=== PATIENT | female | born 1930 | race Caucasian/White ===

== ENCOUNTER 2016-10-26 07:01 | Inpatient (IN) | payer MEDICARE, OTHER ==
[~2016-10-26] VITALS: Ht 162.6 cm; Wt 55.1 kg
[~2016-10-26 07:01] MED LIST: ASC500 PO; ATEN-51 PO; BENA20TA48 PO; CALC-84 PO; CLOP75TA27 PO; DOCU-144 PO; DONE10TA7 PO; ERGO500014 PO; FURO-110 PO; MONT10TA21 PO; MULT-552 PO; POTA8TAB2 PO; SYN75 PO; ZOC10 PO
[2016-10-26] MEDS ORDERED: morphine 4 MG/ML VIAL IV STA (07:08)
[2016-10-26 07:13] VITALS: Ht 162.6 cm; Wt 55.1 kg
[2016-10-26 07:58] LABS: BASOPHIL # 0.1 10^3/ul (0.0-0.1); BASOPHILS % 0.3 % (0.0-2.0); EOSINOPHILS # 0.1 10^3/ul (0.0-0.5); EOSINOPHILS % 0.3 % (0.0-7.0); HEMATOCRIT 32.1 % (37.0-47.0); LYMPHOCYTES # 2.8 10^3/ul (0.8-2.9); MEAN CORPUSCULAR HEMOGLOBIN 37.8 pg (29.0-33.0); MEAN CORPUSCULAR HGB CONC 37.5 g/dl (32.0-37.0); MEAN CORPUSCULAR VOLUME 100.8 fl (82.0-101.0); MEAN PLATELET VOLUME 7.9 fl (7.4-10.4); MONOCYTE # 0.7 10^3/ul (0.3-0.9); MONOCYTES % 2.6 % (0.0-11.0); NEUTROPHIL # 21.5 10^3/ul (1.6-7.5); NEUTROPHILS % 85.8 % (39.0-77.0); PLATELET COUNT 389 10^3/UL (140-440); RED BLOOD COUNT 3.19 10^6/ul (4.20-5.40); RED CELL DISTRIBUTION WIDTH 12.8 % (11.5-14.5); UNCORRECTED WBC 25.1 10^3/ul (4.8-10.8); WHITE BLOOD COUNT 25.1 10^3/ul (4.8-10.8)
[2016-10-26 08:03] LABS: CONDITION 1; LH ANALYZER COMMENTS 1; SUSPECT 1
[2016-10-26 08:05] LABS: CHLORIDE 108 mmol/L (97-110)
[2016-10-26 08:06] LABS: INR 0.99; PROTIME 13.1 Sec (12.2-14.2); SODIUM 148 mmol/L (135-144)
[2016-10-26 08:07] LABS: PARTIAL THROMBOPLASTIN TIME 30.8 Sec (25.0-35.0)
[2016-10-26 08:08] LABS: CREATININE 0.92 mg/dl (0.44-1.00)
[2016-10-26 08:09] LABS: ANION GAP 19 (8-16); BLOOD UREA NITROGEN 20 mg/dl (7-20); CALCIUM 9.4 mg/dl (8.4-10.2); CARBON DIOXIDE 25 mmol/L (21-31); GLUCOSE 137 mg/dl (70-220)
[2016-10-26] MEDS ORDERED: AMLO5TAB4 PO (08:14)
[2016-10-26 08:20] LABS: ANISOCYTOSIS 1+
[2016-10-26 08:21] LABS: PLATELETS CLUMPS 1+
[2016-10-26 08:23] LABS: TROPONIN-I < 0.012 ng/ml (0.00-0.12)
--- NOTE | 2016-10-26 09:15 | RADRPT ---
PROCEDURE: XR Chest. CLINICAL INDICATION: Chest Pain. TECHNIQUE: Frontal chest x-ray was obtained. COMPARISON: Chest x-ray July 17, 2050 FINDINGS: The heart is not enlarged. Mediastinum is not widened. No hilar mass is present. Lungs are clear of any infiltrate. There is no effusion or pneumothorax. IMPRESSION: No evidence for active cardiopulmonary disease. .Antonio Medel MD, MD Date Time Electronically viewed and signed by .Antonio Medel MD, on 10/26/2016 09:15 .A/
--- NOTE | 2016-10-26 09:16 | RADRPT ---
PROCEDURE: XR Left Hip. CLINICAL INDICATION: Trauma TECHNIQUE: AP and frog lateral views of the left hip were performed. COMPARISON: None. FINDINGS: The hip joint is intact with anatomic alignment. There is a probable minimally displaced subcapital femoral neck fracture. No underlying lytic lesion is present. No pelvic fracture is seen. Sacroi liac joint is open. IMPRESSION: Probable minimally displaced left subcapital femoral neck fracture. CT could be performed for confi rmation. .Antonio Medel MD, MD Date Time Electronically viewed and signed by .Antonio Medel MD, MD on 10/26/2016 09:16 .A/
[2016-10-26 09:39] LABS: ADD UMIC YES; URINE BILIRUBIN (Dip) NEGATIVE (NEGATIVE); URINE BLOOD (Dip) 1+ (NEGATIVE); URINE COLOR LT. YELLOW (YELLOW); URINE GLUCOSE (Dip) NEGATIVE (NEGATIVE); URINE KETONES (Dip) NEGATIVE (NEGATIVE); URINE LEUKOCYTE ESTERASE (Dip) NEGATIVE (NEGATIVE); URINE NITRITE (Dip) NEGATIVE (NEGATIVE); URINE TOTAL PROTEIN (Dip) NEGATIVE (NEGATIVE); URINE UROBILINOGEN (Dip) 0.2 E.U./dL (0.1-1.0)
[2016-10-26] MEDS ORDERED: SOD CHLORIDE 0.9% 1,000 ML IV SCH (09:40)
--- NOTE | 2016-10-26 09:43 | ERA ---
ER Documentation Chief Complaint Date/Time DATE: 10/26/16 TIME: 09:41 Chief Complaint BIB RA FROM [facility] FOR LT HIP PAIN S/P FALL HPI This is a an 86-year-old female presents to the emergency room for evaluation of left-sided hip pain. This patient is coming from a longterm and fell off her bed. She states she is having pain in the left hip. No other trauma. No loss of consciousness or head injury. Patient denies being on any blood thinners. ROS All systems reviewed and are negative except as per history of present illness. Medications Home Meds Reported Medications Amlodipine Besylate* (Norvasc*) 5 Mg Tablet, 5 MG PO DAILY, TAB 10/26/16 Potassium Chloride* (Klor-Con*) 8 Meq Tablet.sa, 8 MEQ PO BID, TAB 07/17/15 Furosemide* (Lasix*) 20 Mg Tablet, 20 MG PO DAILY, TAB 07/17/15 Levothyroxine Sodium* (Synthroid*) 75 Mcg Tablet, 75 MCG PO AC BREAKFAST, TAB 07/17/15 Simvastatin (Simvastatin) 10 Mg Tablet, 10 MG PO HS, TAB 07/17/15 Multivitamins* (Once Daily*) 1 Tab Tablet, 1 TAB PO DAILY, TAB 07/17/15 Donepezil* (Aricept*) 10 Mg Tablet, 10 MG PO QHS, TAB 07/17/15 Docusate Sodium* (Colace*) 100 Mg Capsule, 100 MG PO BID, CAP 07/17/15 Benazepril Hcl* (Benazepril Hcl*) 20 Mg Tablet, 20 MG PO BID, TAB 07/17/15 Ergocalciferol* (Drisdol* (Vitamin D2)) 50,000 Unit Capsule, 15324 UNIT PO Q7D, CAP 07/17/15 Ascorbic Acid (Vitamin C) 500 Mg Tab, 500 MG PO DAILY, TAB 07/17/15 Montelukast Sodium* (Singulair*) 10 Mg Tablet, 10 MG PO HS, TAB 07/17/15 Clopidogrel Bisulfate (Clopidogrel) 75 Mg Tablet, 75 MG PO DAILY, TAB 07/17/15 Calcium Carbonate-Vitamin D3 (Calcium 500 + D Tablet) 1 Each Tablet, 1 TAB PO DAILY, TAB 07/17/15 Atenolol* (Atenolol*) 25 Mg Tablet, 25 MG PO DAILY, TAB 07/17/15 Allergies Allergies: Coded Allergies: No Known Allergy (Unverified , 07/17/15) PMhx/Soc History of Surgery: Yes (APPENDECTOMY) Anesthesia Reaction: No Hx Neurological Disorder: No Hx Respiratory Disorders: No Hx Cardiac Disorders: Yes (HTN) Hx Psychiatric Problems: No Hx Miscellaneous Medical Probl: Yes (DEMENTIA ) Hx Alcohol Use: No Hx Substance Use: No Hx Tobacco Use: No Smoking Status: Never smoker Physical Exam Vitals Vital Signs Date Time Temp Pulse Resp B/P Pulse Ox O2 Delivery O2 Flow Rate FiO2 10/26/16 08:43 86 18 182/88 98 Nasal Cannula 2.0 10/26/16 07:20 Nasal Cannula 2 10/26/16 07:13 98.5 98 18 185/68 98 Physical Exam INITIAL VITAL SIGNS: Reviewed by me GENERAL: The patient is well developed and appropriate for usual state of health in no apparent distress HEENT: Pupils equal, round, and reactive to light. EOMI. There is no scleral icterus. NECK: C-spine is soft and supple, there is no meningismus. There is no cervical lymphadenopathy. LUNGS: Clear to auscultation bilaterally. There are no rales, wheezes or rhonchi. HEART: Regular rate and rhythm, no murmurs, clicks, rubs or gallops. ABDOMEN: Soft, non-tender, non-distended. There are bowel sounds in all four quadrants. No rebound or guarding. EXTREMITIES: Internally rotated left hip, tender to palpation over ASIS, there is no peripheral cyanosis or edema. No focal swelling or erythema. NEUROLOGICAL: The patient moves all four extremities with 5/5 strength. Cranial nerves II - XII are intact. Normal gait. Alert and oriented SKIN: There is no apparent rash or petechiae. HEME/LYMPHATIC: There is no evidence of excessive bruising or lymphedema. PSYCHIATRIC: The patient does not appear anxious or depressed. Result Diagram: 10/26/1672410/26/16724 Results 24 hrs Laboratory Tests Test 10/26/16 07:25 Activated Partial Thromboplast Time 30.8Sec Anion Gap 19 Anisocytosis 1+ Basophils # 0.110^3/ul Basophils % 0.3% Blood Morphology Comment Blood Urea Nitrogen 20mg/dl Calcium Level 9.4mg/dl Carbon Dioxide Level 25mmol/L Chloride Level 108mmol/L Clumped Platelets 1+ Creatinine 0.92mg/dl Differential Comment AUTO w/SCAN Eosinophils # 0.110^3/ul Eosinophils % 0.3% Giant Platelets RARE Glucose Level 137mg/dl Hematocrit 32.1% Hemoglobin 12.0g/dl INR International Normalized Ratio 0.99 Lymphocytes # 2.810^3/ul Lymphocytes % 11.0% Macrocytosis 1+ Mean Corpuscular Hemoglobin 37.8pg Mean Corpuscular Hemoglobin Concent 37.5g/dl Mean Corpuscular Volume 100.8fl Mean Platelet Volume 7.9fl Monocytes # 0.710^3/ul Monocytes % 2.6% Neutrophils # 21.510^3/ul Neutrophils % 85.8% Nucleated Red Blood Cells # 0.010^3/ul Nucleated Red Blood Cells % 0.0/100WBC Platelet Count 25620^3/UL Potassium Level 4.0mmol/L Prothrombin Time 13.1Sec Prothrombin Time Ratio 1.0 Red Blood Count 3.1910^6/ul Red Cell Distribution Width 12.8% Sodium Level 148mmol/L Troponin I < 0.012ng/ml White Blood Count 25.110^3/ul Current Medications Medications (Trade) Dose Ordered Sig/Duglas Route PRN Reason Start Time Stop Time Status Last Admin Dose Admin Morphine Sulfate (morphine) 4 mg ONCE STAT IV 10/26/16 07:08 10/26/16 07:10 DC 10/26/16 07:31 Procedures/MDM X-ray Hip 2V Interpreted by me: Bones: Subcapital fracture Joints: [No dislocation] Foreign body: [None] Chest X-ray 1V Interpreted by me: Soft Tissue: No acute abnormalities Bones: No acute abnormalities Mediastinum/Cardiac Silhouette/Lungs: [No acute abnormalities] EKG: Rate/Rhythm: [Normal Sinus Rhythm] QRS, ST, T-waves: [No changes consistent w/ acute ischemia] Impression: [No evidence of ischemia or arrhythmia] This is an 86-year-old female presents to the emergency room for evaluation of left hip pain. This patient was found to have a left-sided hip fracture. I have spoken to our on-call orthopedic surgeon, Dr. finch who is aware and is okay with her admission at this time. This patient did have a white blood cell count greater than 20. The patient was given Rocephin in the emergency room. No signs of pneumonia. This patient will be placed in for admission to her panel physician on the [facility] floor. Departure Diagnosis: Primary Impression: Hip fracture, left Additional Impression: Leukocytosis Condition: Stable THIAGO AGUILA DO Oct 26, 2016 09:43
[2016-10-26] MEDS ORDERED: CEFTRIAXONE 1 GM/50 ML (PMX) 50 ML IVPB ONE (10:00)
[2016-10-26] MEDS ORDERED: ACETAMINOPHEN 325 MG TAB PO PRN ×2 (10:00→14:30)
[2016-10-26] MEDS ORDERED: ONDANSETRON 4 MG INJ IV PRN ×2 (10:00→14:30)
[2016-10-26 10:23] LABS: BACTERIA,URINE MANY
[2016-10-26 12:40] VITALS: BP 136/72; PULSE 91; RESP 16
[2016-10-26] MEDS ORDERED: NACL 0.9% 3 ML SYG IV SCH (14:30)
[2016-10-26] MEDS ORDERED: ZOLPIDEM 5 MG TAB PO PRN (14:30)
[2016-10-26] MEDS ORDERED: HYDROCODONE/APAP (5/325) TAB PO PRN (14:30)
[2016-10-26 14:40] LABS: CK-MB 0.43 ng/ml (0.0-2.4)
[2016-10-26 14:44] LABS: TROPONIN-I 0.055 ng/ml (0.00-0.12)
[2016-10-26] MEDS: morphine 2 MG INJ IV PRN ×2 (15:12→19:37)
[2016-10-26] MEDS: SOD CHLORIDE 0.45% 1,000 ML IV SCH (15:18)
[2016-10-26] MEDS ORDERED: hydrALAzine 20 MG INJ IV PRN (15:30)
--- NOTE | 2016-10-26 15:46 | CONS ---
DATE OF ADMISSION: 10/26/2016 DATE OF CONSULTATION: 10/26/2016 CHIEF COMPLAINT: Left hip pain. HISTORY OF PRESENT ILLNESS: This is an 86-year-old female who was brought into the emergency room a fter a fall at the long term. She is complaining of left groin pain. She denies any loss of con sciousness. She denies chest pain, shortness of breath. She has no other complaints. PAST MEDICAL HISTORY: Hypertension, coronary artery disease, CHF, dementia. MEDICATIONS: 1. Amlodipine 5 mg. 2. Lasix 20 mg. 3. Synthroid 75 mcg. 4. Simvastatin 10 mg. 5. Donepezil 10 mg. 6. Benazepril 20 mg. 7. Clopidogrel 75 mg. 8. Atenolol 25 mg. PAST SURGICAL HISTORY: Appendectomy. SOCIAL HISTORY: The patient lives in a long term. Denies tobacco, alcohol or drug use. FAMILY HISTORY: Noncontributory. ALLERGIES: NO KNOWN DRUG ALLERGIES. REVIEW OF SYSTEMS: Negative. PHYSICAL EXAMINATION VITAL SIGNS: Temperature 98.5, blood pressure 182/88, pulse of 86, 98% on 2 liters. GENERAL: The patient is comfortable. She is alert and oriented x1. EXTREMITIES: Left lower extremity, no open wounds. No deformities. Pain with axial loading. Calf is soft, nontender with a negative Homans. Unable to follow commands for neurovascular exam. LEFT HIP X-RAYS: X-rays of the left hip demonstrate a valgus impacted nondisplaced femoral neck fra cture. There is no degenerative joint disease. No other fractures are seen. IMPRESSION: An 86-year-old female who fell in long term, sustaining a left closed nondisplaced valgus impacted femoral neck fracture. PLAN: The patient will be nonweightbearing. She will be admitted for medical optimization. She wi ll be consented for left hip open reduction internal fixation. The risks of surgery include, but ar e not limited to, infection, deep venous thrombosis, pulmonary embolism, damage to neurovascular str uctures, malunion, nonunion, failure of hardware, need for revision surgery, arthritis, heart attack , stroke and even . There is also up to a 35% chance of 1 year mortality. The patient will re ceive Ancef 1 gram IV 30 minutes prior to incision with 2 additional doses every 8 hours following s urgery. She will also have SCDs bilaterally for DVT prophylaxis in addition to chemoprophylaxis aft er surgery. Please discontinue clopidogrel prior to surgery. Dictated By: KAREN CHRISTIAN/JOSE Conf#: [id number] DID#: [id number]
--- NOTE | 2016-10-26 18:56 | HP ---
DATE OF ADMISSION: 10/26/2016 CHIEF COMPLAINT: Left hip pain. HISTORY OF PRESENT ILLNESS: The patient is an 86-year-old female with a history of dementia. The tiffanie dumas resides at [facility]. [facility] and she presents with left hip martha n. The patient reported falling out of her bed. No reports of loss of consciousness or head injury . In the ED, the patient had a hip x-ray that showed a probable minimally displaced left subcapital femoral neck fracture. CT should be performed for confirmation. The patient has no other complain ts at this time. Mentation is poor secondary to dementia. PAST MEDICAL HISTORY: Obtained from medical documentation, dementia, hypertensive atherosclerotic c ardiovascular disease, coronary artery disease, osteoarthritis, and COPD. MEDICATIONS: 1. Norvasc. 2. Potassium. 3. Lasix. 4. Synthroid. 5. Simvastatin. 6. Multivitamin. 7. Aricept. 8. Colace. 9. Benazepril. 10. Vitamin D. 11. Ascorbic acid. 12. Singulair. 13. Plavix. 14. Calcium. 15. Atenolol. ALLERGIES: NO KNOWN DRUG ALLERGIES. FAMILY HISTORY: Unknown. SOCIAL HISTORY: Resides at a [facility] facility. No reports of any alcohol abuse, substance abuse or tobacco abuse. REVIEW OF SYSTEMS: A 12-point review of systems negative, difficult to obtain secondary to the raulito ent's poor mentation. PHYSICAL EXAMINATION: VITAL SIGNS: Temperature is 98.6, pulse is 91, respiratory rate 16, blood pressure is 136/72, satur ation 96% on 2 liters. GENERAL: No acute distress, alert but not oriented. HEENT: Normocephalic, atraumatic. LUNGS: Clear to auscultation. CARDIOVASCULAR: Regular rate and rhythm. ABDOMEN: Nondistended, nontender, soft. EXTREMITIES: No clubbing, cyanosis, or edema. LABORATORIES: White count is , hemoglobin is 12.0, platelets are 389. Chemistry within normal limits except for a sodium of 148, anion gap is 19. INR is 0.99. UA is within normal limits excep t for a specific gravity of 1.030 and 1+ hemoglobin. DIAGNOSTICS: Chest x-ray shows no evidence of active disease. Hip x-ray shows probable minimally di splaced left subcapital femoral neck fracture. CT can be performed for confirmation. ASSESSMENT AND PLAN: 1. Left hip fracture secondary to fall. Orthopedics with Dr. Liang was consulted. The raulito ent to have an echo for preop clearance. Will keep patient n.p.o. after midnight, will give morphin e and [place] for pain control. We will defer the need for CT to ortho. 2. Leukocytosis, likely reactive. UA shows no signs of infection. X-ray shows no pneumonia. The patient is status post Rocephin x1 in the ED. We will monitor. No indication for antibiotics at th is time. 3. Hypernatremia, we will treat with IV fluids. 4. Dementia. No acute issues. 5. History of coronary artery disease. The patient's home meds will be held at this time secondary to ensuing surgery. 6. History of hypertension. We will give hydralazine p.r.n. 7. Dyslipidemia. Hold statin at this time. 8. Prophylaxis, heparin. Dictated By: BRYCE REDD MD BS/JOSE Conf#: [id number] DID#: [id number]
[2016-10-26 19:00] VITALS: BP 149/64; RESP 17
[2016-10-26 20:35] LABS: CK-MB 0.5 ng/ml (0.0-2.4)
[2016-10-26] MEDS: HEPARIN 5,000 UNIT/0.5 ML SYG SC SCH (20:37)
[2016-10-26 22:07] LABS: TROPONIN-I 0.064 ng/ml (0.00-0.12)
[2016-10-27] MEDS: SOD CHLORIDE 0.45% 1,000 ML IV SCH ×2 (00:49→10:55)
[2016-10-27 05:43] LABS: POTASSIUM 4.4 mmol/L (3.5-5.1)
[2016-10-27 05:46] LABS: CREATININE 0.82 mg/dl (0.44-1.00)
[2016-10-27 05:47] LABS: CALCIUM 8.6 mg/dl (8.4-10.2); MAGNESIUM 1.5 mg/dl (1.7-2.5)
[2016-10-27] MEDS: HEPARIN 5,000 UNIT/0.5 ML SYG SC SCH (07:47)
[2016-10-27 08:00] VITALS: BP 150/68; RESP 20
[2016-10-27 08:02] LABS: BASOPHIL # 0.1 10^3/ul (0.0-0.1); BASOPHILS % 0.4 % (0.0-2.0); EOSINOPHILS # 0.3 10^3/ul (0.0-0.5); EOSINOPHILS % 2.9 % (0.0-7.0); HEMATOCRIT 30.8 % (37.0-47.0); HEMOGLOBIN 10.5 g/dl (12.0-16.0); LYMPHOCYTES # 1.9 10^3/ul (0.8-2.9); LYMPHOCYTES % 15.5 % (15.0-51.0); MEAN CORPUSCULAR HEMOGLOBIN 30.9 pg (29.0-33.0); MEAN CORPUSCULAR VOLUME 90.7 fl (82.0-101.0); MEAN PLATELET VOLUME 8.1 fl (7.4-10.4); MONOCYTE # 0.6 10^3/ul (0.3-0.9); MONOCYTES % 5.4 % (0.0-11.0); NEUTROPHIL # 9.1 10^3/ul (1.6-7.5); NEUTROPHILS % 75.8 % (39.0-77.0); PLATELET COUNT 318 10^3/UL (140-440); RED CELL DISTRIBUTION WIDTH 13.5 % (11.5-14.5); UNCORRECTED WBC 11.9 10^3/ul (4.8-10.8); WHITE BLOOD COUNT 11.9 10^3/ul (4.8-10.8)
[2016-10-27 08:03] LABS: CONDITION 1
[2016-10-27] MEDS: INFLUENZA VIRUS VACCINE 0.5 ML SYG IM* ONE ×2 (09:02→09:04)
--- NOTE | 2016-10-27 12:06 | RADRPT ---
Echocardiogram Report Patient Name: STARR CARBAJAL Gender: Female Date: 1930 Study Date: 27-Oct-2016 Carbonation Equipment Operator: COSTA Location: I Ref. Physician: BRYCE REDD Quality: Good Procedures: Transthoracic echocardiogram with 2D, M-Mode, and doppler examination. Indications: Pre-op. 2D/M Mode Doppler Measurement Value Normal Ranges Measurement Value Normal Ranges AoR Diam MM 3.3 cm AV Peak Live 1.1 m/sec ACS MM 1.9 cm AV Peak PG 5.0 mmHg LVIDd 2D 2.9 3.5 - 5.6 cm LVOT Peak Live 0.8 m/sec LVIDs 2D 2.0 2.1 - 4.1 cm LVOT Peak PG 2.3 mmHg LVPWd 2D 1.2 0.6 - 1.1 cm MV E Peak Live 0.6 m/sec IVSd 2D 1.2 0.6 - 1.1 cm MV A Peak Live 1.0 m/sec EDV 2D 32.9 cm3 MV E/A 0.6 ESV 2D 7.5 cm3 MV Decel Time 256 msec LA Dimen 2D 2.2 2.3 - 4.0 cm MV Decel Cherry 2 MV E/A 0.6 TR Peak Liev 3.1 m/sec TR Peak PG 38.5 mmHg PV Peak Live 1.0 m/sec PV Peak PG 4.0 mmHg RVSP 41.5 mmHg Findings Left Ventricle: Lower limits of normal systolic function. Normal left ventricular cavity size. Mild concentric left ventricular hypertrophy. Unable to estimate left ventricular function secondary to poor acoustic windows. Ejection fraction is visually estimated at 45 %. Tissue Doppler/Mitral Doppler indices are indeterminate according to new diastolic parameters. E/E`=11. Right Ventricle: Normal right ventricular size. Left Atrium: The left atrium is normal in size. Right Atrium: The right atrium is normal in size. Atrial Septum: Normal atrial septum. Mitral Valve: Normal appearance of the mitral valve. No mitral valve regurgitation is seen. Aortic Valve: No hemodynamically significant aortic stenosis by doppler. Trileaflet aortic valve. Trace aortic valve regurgitation. Tricuspid Valve: Normal appearance of the tricuspid valve. Estimated peak PA systolic pressure 42 mmHg. There is mild to moderate tricuspid regurgitation. Pulmonic Valve: Normal pulmonic valve appearance. There is trace pulmonic regurgitation. Pericardium: Normal pericardium with no significant pericardial effusion. Aorta: Normal aortic root. IVC: Normal size and normal respiratory collapse consistent with normal right atrial pressure. Pulmonary Artery: Normal pulmonary artery size. Conclusions 1.Lower limits of normal systolic function. Normal left ventricular cavity size. Mild concentric left ventricular hypertrophy. Unable to estimate left ventricular function secondary to poor acoustic windows. Ejection fraction is visually estimated at 45 %. Tissue Doppler/Mitral Doppler indices are indeterminate according to new diastolic parameters. E/E`=11. 2.No hemodynamically significant aortic stenosis by doppler. Trileaflet aortic valve. Trace aortic valve regurgitation. 3.Normal appearance of the tricuspid valve. Estimated peak PA systolic pressure 42 mmHg. There is mild to moderate tricuspid regurgitation. 4.Normal appearance of the mitral valve. No mitral valve regurgitation is seen. 5.very suboptimal. Electronically Signed By: Tanner Christensen 27-Oct-2016 12:05:44 -0800 Patient Name: STARR CARBAJAL Study Date: 27-Oct-2016 [id number]
--- NOTE | 2016-10-27 18:12 | PN ---
Date/Time of Note Date/Time of Note DATE: 10/27/16 TIME: 18:00 Assessment/Plan VTE Prophylaxis VTE Prophylaxis Intervention: heparin Lines/Catheters IV [facility]atheter [facility] (from [facility]): Peripheral IV Assessment/Plan Chief Complaint/Hosp Course 1. Left hip fracture secondary to fall -Orthopedics with Dr. Mills-Rad consult appreciated -Echo done and shows an EFof 45%- pt is compensated and benefits of surgery which include the ability to ambulate and pain control outweigh the risks 2. Leukocytosis-Improved -Likely reactive, UA shows no signs of infection. X-ray shows no pneumonia 3. Hypernatremia-resolved -cont IVF 4. Dementia. No acute issues. 5. History of coronary artery disease. The patient's home meds will be held at this time secondary to ensuing surgery. 6. History of hypertension. We will give hydralazine p.r.n. 7. Dyslipidemia. Hold statin at this time. 8. Prophylaxis, heparin. Problems: Subjective 24 Hr Interval Summary Constitutional: disoriented Exam/Review of Systems Vital Signs Vitals Vital Signs Date Time Temp Pulse Resp B/P Pulse Ox O2 Delivery O2 Flow Rate FiO2 10/27/16 08:00 99.0 84 20 150/68 91 10/26/16 12:40 2.0 10/26/16 12:40 Nasal Cannula Intake and Output 10/26/16 10/26/16 10/27/16 15:00 23:00 07:00 Intake Total 280 ml 1240 ml Output Total 400 ml Balance 280 ml 840 ml Exam Psych: confusion Respiratory: clear to auscultation Cardiovascular: regular rate and rhythm Gastrointestinal: soft, No distended Musculoskeletal: nl extremities to inspection Results Result Diagram: 10/27/16 0440 10/27/16 0440 Results 24 hrs Laboratory Tests Test 10/26/16 19:25 10/27/16 04:40 Creatine Kinase 88 Creatine Kinase Index 0.6 Creatinine Kinase MB (Mass) 0.50 Troponin I 0.064 Anion Gap 13 Basophils # 0.1 Basophils % 0.4 Blood Urea Nitrogen 14 Calcium Level 8.6 Carbon Dioxide Level 24 Chloride Level 107 Creatinine 0.82 Eosinophils # 0.3 Eosinophils % 2.9 Glucose Level 103 Hematocrit 30.8 L Hemoglobin 10.5 L Hemoglobin A1c 5.9 Lymphocytes # 1.9 Lymphocytes % 15.5 Magnesium Level 1.5 L Mean Corpuscular Hemoglobin 30.9 Mean Corpuscular Hemoglobin Concent 34.0 Mean Corpuscular Volume 90.7 Mean Platelet Volume 8.1 Monocytes # 0.6 Monocytes % 5.4 Neutrophils # 9.1 H Neutrophils % 75.8 Nucleated Red Blood Cells # 0.0 Nucleated Red Blood Cells % 0.0 Phosphorus Level 3.0 Platelet Count 318 Potassium Level 4.4 Red Blood Count 3.40 L Red Cell Distribution Width 13.5 Sodium Level 140 White Blood Count 11.9 #H Medications Medications Current Medications Sodium Chloride (1/2 NS) 1,000 ml @ 100 mls/hr Q10H IV Last administered on 10:55; Admin Dose 100 MLS/HR; Start 10/26/16 at 14:30 Ondansetron HCl (Zofran Inj) 4 mg Q6H PRN IV NAUSEA AND/OR VOMITING; Start at 14:30 Acetaminophen (Tylenol Tab) 650 mg Q6H PRN PO PAIN LEVEL 1-3 OR FEVER Last administered on 10/27/16 13:55; Admin Dose 650 MG; Start 10/26/16 at 14:30 Acetaminophen/ Hydrocodone Bitart ([place] (5/325)) 1 tab Q6H PRN PO MODERATE PAIN LEVEL 4-6; Start 10/26/16 at 14:30 Morphine Sulfate (morphine) 2 mg Q4H PRN IV SEVERE PAIN LEVEL 7-10 Last administered on 10/26/16 19:37; Admin Dose 2 MG; Start 10/26/16 at 14:30 Zolpidem Tartrate (Ambien) 5 mg QHS PRN PO SLEEP; Start 10/26/16 at 14:30 Heparin Sodium (Porcine) (Heparin (5000 Units/0.5 ml)) 5,000 unit Q12 SC Last administered on 10/26/16 20:37; Admin Dose 5,000 UNIT; Start 10/26/16 at 21:00 Hydralazine HCl (Apresoline) 10 mg Q4H PRN IV SBP>170; Start 10/26/16 at 15:30 BRYCE REDD Oct 27, 2016 18:11
[2016-10-27] MEDS ORDERED: MAGNESIUM SULFATE 4 GM/100 ML 100 ML IVPB ONE (18:30)
[2016-10-27 19:48] VITALS: BP 157/70; RESP 16
[2016-10-27] MEDS: DEXTROSE 5%-0.45% NACL 1,000 ML IV SCH (23:06)
[2016-10-28 06:09] LABS: BASOPHILS % 0.3 % (0.0-2.0); EOSINOPHILS # 0.5 10^3/ul (0.0-0.5); EOSINOPHILS % 4.6 % (0.0-7.0); HEMATOCRIT 27.3 % (37.0-47.0); HEMOGLOBIN 10.1 g/dl (12.0-16.0); LYMPHOCYTES # 2.1 10^3/ul (0.8-2.9); LYMPHOCYTES % 21.3 % (15.0-51.0); MEAN CORPUSCULAR HEMOGLOBIN 37.9 pg (29.0-33.0); MEAN CORPUSCULAR HGB CONC 36.8 g/dl (32.0-37.0); MEAN CORPUSCULAR VOLUME 102.9 fl (82.0-101.0); MEAN PLATELET VOLUME 8.5 fl (7.4-10.4); MONOCYTE # 0.5 10^3/ul (0.3-0.9); MONOCYTES % 4.7 % (0.0-11.0); NEUTROPHIL # 6.9 10^3/ul (1.6-7.5); NEUTROPHILS % 69.1 % (39.0-77.0); PLATELET COUNT 283 10^3/UL (140-440); RED BLOOD COUNT 2.66 10^6/ul (4.20-5.40); RED CELL DISTRIBUTION WIDTH 13.1 % (11.5-14.5)
[2016-10-28 06:15] LABS: CONDITION 1; LH ANALYZER COMMENTS 1
[2016-10-28 06:21] LABS: POTASSIUM 4.1 mmol/L (3.5-5.1)
[2016-10-28 06:24] LABS: CREATININE 0.77 mg/dl (0.44-1.00)
[2016-10-28 06:25] LABS: CALCIUM 7.8 mg/dl (8.4-10.2); MAGNESIUM 2.8 mg/dl (1.7-2.5)
[2016-10-28 07:32] VITALS: BP 152/66; RESP 18
[2016-10-28] MEDS: CEFTRIAXONE 1 GM/50 ML (PMX) 50 ML IVPB SCH (12:32)
--- NOTE | 2016-10-28 13:12 | PN ---
DATE: 10/28/2016 HOSPITALIST PROGRESS NOTE TIME OF EVALUATION: 12 p.m. SUBJECTIVE DATA: The patient's left hip surgery has been canceled today because of inability to get consent. Left hip pain well controlled. Complains of headache. OBJECTIVE DATA: VITAL SIGNS: Temperature 97.9, pulse rate 82, respiratory rate 18, blood pressure 152/66, oxygen saturation 95% on low-flow O2. GENERAL: This is a frail-looking female lying in bed in no apparent distress. HEENT: Head normocephalic and atraumatic. Eyes: Anicteric sclerae. Conjunctivae clear. ENT: Nasal septum is midline. Oral mucosa is dry. NECK: Supple. No JVD noticed. RESPIRATORY: Bilaterally diminished breath sounds. No adventitious breath sounds heard. No use of accessory muscles of respiration. CARDIAC: Regular rate and rhythm. S1 and S2 heard. ABDOMEN: Soft, nontender and nondistended. Bowel sounds positive in all 4 quadrants. GENITOURINARY: Deferred. EXTREMITIES: No cyanosis, no clubbing, no edema. Peripheral pulses are palpable. NEUROLOGIC: The patient is awake and alert and oriented x1. Moves all 4 extremities. LABORATORY AND DIAGNOSTIC DATA: WBC 10.0, hemoglobin 10.1, hematocrit 27.3, platelet count 283. Sodium 139, potassium 4.1, chloride 107, carbon dioxide 25 , anion gap 12, BUN 10, creatinine 0.77, glucose 108, calcium 7.8, magnesium 2.8. ASSESSMENT AND PLAN: 1. Left subcapital femoral neck fracture. The patient was seen and evaluated by orthopedic surgery. The patient needs surgical intervention. However, the patient is unable to give a consent for the surgery because of advanced dementia. The patient does not have a conservator. So the patient's surgery was canceled. tree and shrub worker has been involved for help with finding a conservator versus for possible bioethics committee decision for the consent and the appropriateness of surgery on this patient. Continue pain control. 2. Essential hypertension. Continue antihypertensives including p.r.n. antihypertensives for any systolic blood pressure readings greater than 170 mmHg. 3. Cardiomyopathy with ejection fraction of 45%. No evidence of any congestive heart failure exacerbation. Continue beta blockers and DRE inhibitors. 4. Hypothyroidism. Continue Synthroid. Will obtain a thyroid panel. 5. Pulmonary hypertension. PA pressure of 42 mmHg as per 2-D echocardiogram. Continue supplemental oxygen. 6. Systemic inflammatory response syndrome with leukocytosis and febrile illness upon admission. Etiology unclear. Will send narvaez cultures. The patient has no evidence of any septic shock. The patient will be started on empiric antibiotics. 7. Dementia. Continue Aricept. Continue frequent reorientation. 8. Fluid, electrolytes, and nutrition. Will start the patient on a pureed diet. 9. Deep venous thrombosis prophylaxis with bilateral sequential compression devices. 10. Gastrointestinal prophylaxis. Histamine 2 receptor blockers. PLAN: Will obtain a cardiology consult for cardiology clearance for surgical intervention. Social work consult ordered for help with obtaining a conservator versus bioethics committee meeting for determining the appropriateness of surgery on a candidate who is severely demented and has no capability of making decisions on her behalf. Case discussed with Dr. Arias. DEIDRE ARIAS MD, AM/JOSE Conf#: [id number] DID#: [id number] MTDD
[2016-10-28 14:56] LABS: ADD UMIC YES; URINE BILIRUBIN (Dip) NEGATIVE (NEGATIVE); URINE BLOOD (Dip) 3+ (NEGATIVE); URINE COLOR LT. YELLOW (YELLOW); URINE GLUCOSE (Dip) NEGATIVE (NEGATIVE); URINE KETONES (Dip) NEGATIVE (NEGATIVE); URINE LEUKOCYTE ESTERASE (Dip) NEGATIVE (NEGATIVE); URINE NITRITE (Dip) NEGATIVE (NEGATIVE); URINE TOTAL PROTEIN (Dip) NEGATIVE (NEGATIVE); URINE UROBILINOGEN (Dip) 0.2 E.U./dL (0.1-1.0)
[2016-10-28 15:14] LABS: BACTERIA,URINE FEW; MUCUS,URINE FEW; URINE RBCS 25-50 /HPF (0)
[2016-10-28] MEDS: DEXTROSE 5%-0.45% NACL 1,000 ML IV SCH ×2 (15:40→18:05)
[2016-10-28 19:00] VITALS: BP 110/55; RESP 16
[2016-10-28] MEDS: DOCUSATE SODIUM 100 MG CAP PO SCH (21:34)
[2016-10-28] MEDS: FAMOTIDINE 20 MG TAB PO SCH (21:34)
[2016-10-28] MEDS: DONEPEZIL 10 MG TAB PO SCH (21:35)
[2016-10-28] MEDS: BENAZEPRIL 20 MG TAB PO SCH (21:35)
[2016-10-28] MEDS: MONTELUKAST 10 MG TAB PO SCH (21:35)
[2016-10-29] MEDS: LEVOTHYROXINE 75 MCG TAB PO SCH (05:26)
[2016-10-29 06:52] LABS: CHOL/HDL RATIO 3.8 RATIO
[2016-10-29 06:58] LABS: CREATININE 0.84 mg/dl (0.44-1.00)
[2016-10-29 06:59] LABS: CALCIUM 8.5 mg/dl (8.4-10.2)
[2016-10-29 07:06] LABS: MAGNESIUM 1.9 mg/dl (1.7-2.5); PHOSPHORUS 3.4 mg/dl (2.5-4.9)
[2016-10-29 07:17] LABS: THYROID STIMULATING HORMONE 0.372 MIU/L (0.465-4.680)
[2016-10-29 07:20] LABS: BASOPHILS % 0.4 % (0.0-2.0); EOSINOPHILS # 0.4 10^3/ul (0.0-0.5); EOSINOPHILS % 3.2 % (0.0-7.0); HEMATOCRIT 29.7 % (37.0-47.0); HEMOGLOBIN 10.1 g/dl (12.0-16.0); LYMPHOCYTES # 2.2 10^3/ul (0.8-2.9); LYMPHOCYTES % 17.6 % (15.0-51.0); MEAN CORPUSCULAR HEMOGLOBIN 30.7 pg (29.0-33.0); MEAN CORPUSCULAR HGB CONC 33.9 g/dl (32.0-37.0); MEAN CORPUSCULAR VOLUME 90.6 fl (82.0-101.0); MEAN PLATELET VOLUME 8.2 fl (7.4-10.4); MONOCYTE # 0.7 10^3/ul (0.3-0.9); MONOCYTES % 5.5 % (0.0-11.0); NEUTROPHILS % 73.3 % (39.0-77.0); PLATELET COUNT 263 10^3/UL (140-440); RED BLOOD COUNT 3.28 10^6/ul (4.20-5.40); RED CELL DISTRIBUTION WIDTH 12.9 % (11.5-14.5); UNCORRECTED WBC 12.3 10^3/ul (4.8-10.8); WHITE BLOOD COUNT 12.3 10^3/ul (4.8-10.8)
[2016-10-29 07:23] VITALS: BP 146/66; RESP 18
[2016-10-29 07:29] LABS: CONDITION 1
--- NOTE | 2016-10-29 08:08 | CONS ---
DATE OF ADMISSION: 10/26/2016 DATE OF CONSULTATION: 10/28/2016 REASON FOR CONSULTATION: Cardiovascular preop evaluation. CHIEF COMPLAINT: Status post fall with hip pain. HISTORY OF PRESENT ILLNESS: Thank you for this referral. History obtained from the patient, who wa s a very poor historian due to her memory impairment, history from review of the old chart, discussi on with physician and staff. This is an unfortunate 86-year-old female with history of hypertension , dementia, who lives in [facility]. The patient was brought in because of a fall. Apparentl y the patient has fallen down. She has a left hip fracture. I am unable to get a reliable history f rom the patient. There is no reported loss of consciousness or head injury though. The patient is not mobile and mostly bedridden. No reported chest pain or pressure. PAST MEDICAL HISTORY: Review of the old chart, history of dementia, hypertension, question history of COPD and coronary artery disease. MEDICATIONS: At home prior to admission include: 1. Norvasc. 2. Potassium. 3. Lasix. 4. Synthroid. 5. Simvastatin. 6. Aricept. 7. Benazepril. 8. Plavix. 9. Atenolol. ALLERGIES: NO KNOWN DRUG ALLERGIES. FAMILY HISTORY: There is no reported history of coronary artery disease . SOCIAL HISTORY: The patient in a fci. No report of reviewed. REVIEW OF SYSTEMS: Complains of right-sided arm and hip pain. All other are negative as above ment ioned, the best I could obtain. PHYSICAL EXAMINATION: VITAL SIGNS: Temperature 97.9, heart of 82, blood pressure of 150/66, respiratory rate of 18, satur ating 95%. HEENT: Normocephalic, atraumatic female. Pupils equal and round. NECK: Supple, with no JVD noted. CARDIOVASCULAR: Regular rate and rhythm, systolic murmur. PULMONARY: Anteriorly with no wheezes heard. GASTROINTESTINAL: Soft, nontender. No rebound or guarding. EXTREMITIES: Trivial lower extremity edema. NEUROLOGIC: Awake, oriented to person and place. PSYCHIATRIC: Stable mood and pleasant. LABORATORY: WBC of 10, hemoglobin 10.1, platelets 283, sodium 139, potassium 4.1, BUN of 10, creati nine 0.77, glucose 108. Troponin 0.064. Chest x-ray shows no evidence of acute cardiopulmonary dis ease. Hip x-ray showed probably minimally displaced left subcapital femoral neck fracture. EKG was personally reviewed, showed normal sinus rhythm. There were no conduction delay, cannot rule out a nterior infarct, age undetermined. Echocardiogram was also personally reviewed as well; it is a ruby hnically difficult study. Ejection fraction could not be well calculated. It is probably about 45%. ASSESSMENT AND PLAN: 1. Cardiovascular preop evaluation. 2. Hip fracture. 3. Mild cardiomyopathy, probably mild ____ myopathy. 4. History of hypertension, under fair control now. 5. Severe dementia. 6. Abnormal EKG. 7. Incomplete data. RECOMMENDATIONS: We will continue the patient at her current medical therapy including atenolol and benazepril. There are no clinical signs of congestive heart failure now and the patient ____. Milton davis, based on the above information, I have been able to obtain, no further cardiac workup would be ____. The patient is considered optimized from the cardiac standpoint for above surgery. She has multiple risk factors and very poor exercise tolerance, which makes her at moderate risk of cardiova scular event. However, no further cardiac workup would be needed. We will continue to follow along with you. Thank you for this referral. Dictated By: NEGAR LIU MD AV/NTS Conf#: [id number] DID#: [id number] CC: MIGUEL A SANDOVAL MD; BRYCE REDD MD; DEIDRE TOLLIVER PROFESSOR OF HISTORICAL THEOLOGY;*[facility]*
[2016-10-29] MEDS: DOCUSATE SODIUM 100 MG CAP PO SCH ×2 (08:53→21:11)
[2016-10-29] MEDS: AMLODIPINE 5 MG TAB PO SCH (08:53)
[2016-10-29] MEDS: FAMOTIDINE 20 MG TAB PO SCH ×2 (08:53→21:11)
[2016-10-29] MEDS: MULTIVITAMINS THERAPEUTIC TAB PO SCH (08:53)
[2016-10-29] MEDS: ASCORBIC ACID 500 MG TAB PO SCH (08:53)
[2016-10-29] MEDS: FUROSEMIDE 20 MG TAB PO SCH (08:54)
[2016-10-29] MEDS: ATENOLOL 25 MG TAB PO SCH (08:54)
[2016-10-29] MEDS: BENAZEPRIL 20 MG TAB PO SCH ×2 (08:54→21:11)
[2016-10-29] MEDS: DEXTROSE 5%-0.45% NACL 1,000 ML IV SCH (08:59)
--- NOTE | 2016-10-29 10:45 | PN ---
Date/Time of Note Date/Time of Note DATE: 10/29/16 TIME: 10:40 Assessment/Plan VTE Prophylaxis VTE Prophylaxis Intervention: SCD's Lines/Catheters IV Catheter Type (from Nrs): Peripheral IV Urinary Cath still in place: Yes Reason Cath still needed: other (indicate) (Hip fracture.) Assessment/Plan Chief Complaint/Hosp Course 1. Left subcapital femoral neck fracture. The patient was seen and evaluated by orthopedic surgery. The patient needs surgical intervention. However, the patient is unable to give a consent for the surgery because of advanced dementia. The patient does not have a conservator. So the patient's surgery was canceled. mend worker has been involved for help with finding a conservator versus for possible bioethics committee decision for the consent and the appropriateness of surgery on this patient. Continue pain control. 2. Essential hypertension. Continue antihypertensives including p.r.n. antihypertensives for any systolic blood pressure readings greater than 170 mmHg. 3. Cardiomyopathy with ejection fraction of 45%. No evidence of any congestive heart failure exacerbation. Continue beta blockers and DRE inhibitors. 4. Hypothyroidism. Continue Synthroid. 5. Pulmonary hypertension. PA pressure of 42 mmHg as per 2-D echocardiogram. Continue supplemental oxygen. 6. Systemic inflammatory response syndrome with leukocytosis and febrile illness upon admission. Etiology unclear. Alcantar cultures pending. The patient has no evidence of any septic shock. The patient on empiric antibiotics. 7. Dementia. Continue Aricept. Continue frequent reorientation. 8. Fluid, electrolytes, and nutrition. Continue pureed diet. 9. Deep venous thrombosis prophylaxis with bilateral sequential compression devices. 10. Gastrointestinal prophylaxis. Histamine 2 receptor blockers. PLAN: Continue in house monitoring. Will await until social work is able to find a conservator versus setting up a bioethics meeting for arriving at a conclusion for the ethical appropriateness for surgical intervention on this patient. Case discussed with Dr. Ward. Problems: Subjective 24 Hr Interval Summary Free Text/Dictation Pain well controlled. Exam/Review of Systems Vital Signs Vitals Vital Signs Date Time Temp Pulse Resp B/P Pulse Ox O2 Delivery O2 Flow Rate FiO2 10/29/16 07:23 97.8 80 18 146/66 92 10/28/16 20:00 Nasal Cannula 2.0 Intake and Output 10/28/16 10/28/16 10/29/16 15:00 23:00 07:00 Intake Total 50 ml 1360 ml 460 ml Output Total 1200 ml 850 ml Balance 50 ml 160 ml -390 ml Exam GENERAL: This is a frail-looking female lying in bed in no apparent distress. HEENT: Head normocephalic and atraumatic. Eyes: Anicteric sclerae. Conjunctivae clear. ENT: Nasal septum is midline. Oral mucosa is dry. NECK: Supple. No JVD noticed. RESPIRATORY: Bilaterally diminished breath sounds. No adventitious breath sounds heard. No use of accessory muscles of respiration. CARDIAC: Regular rate and rhythm. S1 and S2 heard. ABDOMEN: Soft, nontender and nondistended. Bowel sounds positive in all 4 quadrants. GENITOURINARY: Deferred. EXTREMITIES: No cyanosis, no clubbing, no edema. Peripheral pulses are palpable. NEUROLOGIC: The patient is awake and alert and oriented x1. Moves all 4 extremities. Results Result Diagram: 10/29/16 0544 10/29/16 0544 Results 24 hrs Laboratory Tests Test 10/28/16 13:00 10/28/16 13:40 10/29/16 05:44 Urine Bacteria FEW Urine Bilirubin NEGATIVE Urine Clarity CLEAR Urine Color LT. YELLOW Urine Epithelial Cells FEW Urine Glucose NEGATIVE Urine Hemoglobin 3+ H Urine Ketones NEGATIVE Urine Leukocyte Esterase NEGATIVE Urine Microscopic RBC 25-50 Urine Microscopic WBC 2-5 Urine Mucus FEW Urine Nitrite NEGATIVE Urine Specific [place] 1.015 Urine Total Protein NEGATIVE Urine Urobilinogen 0.2 E.U./dL Urine pH 5.5 Vitamin D 1,25-Dihydroxy 23.2 L Anion Gap 15 Basophils # 0.0 Basophils % 0.4 Blood Urea Nitrogen 11 Calcium Level 8.5 Carbon Dioxide Level 24 Chloride Level 109 Cholesterol Level 133 Cholesterol/HDL Ratio 3.8 Creatinine 0.84 Eosinophils # 0.4 Eosinophils % 3.2 Free Thyroxine 1.27 Glucose Level 117 HDL Cholesterol 35 Hematocrit 29.7 L Hemoglobin 10.1 L LDL Cholesterol, Calculated 76 Lymphocytes # 2.2 Lymphocytes % 17.6 Magnesium Level 1.9 Mean Corpuscular Hemoglobin 30.7 Mean Corpuscular Hemoglobin Concent 33.9 Mean Corpuscular Volume 90.6 Mean Platelet Volume 8.2 Monocytes # 0.7 Monocytes % 5.5 Neutrophils # 9.0 H Neutrophils % 73.3 Nucleated Red Blood Cells # 0.0 Nucleated Red Blood Cells % 0.0 Phosphorus Level 3.4 Platelet Count 263 Potassium Level 4.0 Red Blood Count 3.28 #L Red Cell Distribution Width 12.9 Sodium Level 144 Thyroid Stimulating Hormone (TSH) 0.372 L Triglycerides Level 109 White Blood Count 12.3 #H Medications Medications Current Medications Ondansetron HCl (Zofran Inj) 4 mg Q6H PRN IV NAUSEA AND/OR VOMITING; Start at 14:30 Acetaminophen (Tylenol Tab) 650 mg Q6H PRN PO PAIN LEVEL 1-3 OR FEVER Last administered on 10/27/16 13:55; Admin Dose 650 MG; Start 10/26/16 at 14:30 Acetaminophen/ Hydrocodone Bitart ([place] (5/325)) 1 tab Q6H PRN PO MODERATE PAIN LEVEL 4-6; Start 10/26/16 at 14:30 Morphine Sulfate (morphine) 2 mg Q4H PRN IV SEVERE PAIN LEVEL 7-10 Last administered on 10/26/16 19:37; Admin Dose 2 MG; Start 10/26/16 at 14:30 Zolpidem Tartrate (Ambien) 5 mg QHS PRN PO SLEEP Last administered on 01:01; Admin Dose 5 MG; Start 10/26/16 at 14:30 Heparin Sodium (Porcine) (Heparin (5000 Units/0.5 ml)) 5,000 unit Q12 SC Last administered on 10/26/16 20:37; Admin Dose 5,000 UNIT; Start 10/26/16 at 21:00 ; Status Future Hold Hydralazine HCl 10 mg 10 mg Q4H PRN IV SBP>170; Start 10/26/16 at 15:30 Dextrose/Sodium Chloride (D5-1/2ns) 1,000 ml @ 60 mls/hr [id number] IV Last administered on 10/29/16 08:59; Admin Dose 60 MLS/HR; Start 10/27/16 at 23:00 Amlodipine Besylate (Norvasc) 5 mg DAILY PO Last administered on 10/29/16 08: 53; Admin Dose 5 MG; Start 10/29/16 at 09:00 Ascorbic Acid (Vitamin C) 500 mg DAILY PO Last administered on 10/29/16 08:53 ; Admin Dose 500 MG; Start 10/29/16 at 09:00 Atenolol (Tenormin) 25 mg DAILY PO Last administered on 10/29/16 08:54; Admin Dose 25 MG; Start 10/29/16 at 09:00 Benazepril HCl (Lotensin) 20 mg BID PO Last administered on 10/29/16 08:54; Admin Dose 20 MG; Start 10/28/16 at 21:00 Docusate Sodium (Colace) 100 mg BID PO Last administered on 10/29/16 08:53; Admin Dose 100 MG; Start 10/28/16 at 21:00 Donepezil HCl (Aricept) 10 mg QHS PO Last administered on 10/28/16 21:35; Admin Dose 10 MG; Start 10/28/16 at 21:00 Ergocalciferol (Drisdol) 50,000 unit Q7D PO ; Start 11/03/16 at 09:00 Furosemide (Lasix) 20 mg DAILY PO Last administered on 10/29/16 08:54; Admin Dose 20 MG; Start 10/29/16 at 09:00 Levothyroxine Sodium (Synthroid) 75 mcg DAILY@06 PO Last administered on 05:26; Admin Dose 75 MCG; Start 10/29/16 at 06:00 Montelukast Sodium (Singulair) 10 mg HS PO Last administered on 10/28/16 21:35 ; Admin Dose 10 MG; Start 10/28/16 at 21:00 Multivitamins Therapeutic (Theragran) 1 tab DAILY PO Last administered on 08:53; Admin Dose 1 TAB; Start 10/29/16 at 09:00 Famotidine 20 mg 20 mg BID PO Last administered on 10/29/16 08:53; Admin Dose 20 MG; Start 10/28/16 at 21:00 Ceftriaxone Sodium (Rocephin) 50 ml @ 100 mls/hr Q24H IVPB Last administered on 10/28/16 12:32; Admin Dose 100 MLS/HR; Start 10/28/16 at 13:00 DEIDRE TOLLIVER NP Oct 29, 2016 10:45
[2016-10-29] MEDS: CEFTRIAXONE 1 GM/50 ML (PMX) 50 ML IVPB SCH (14:30)
--- NOTE | 2016-10-29 17:49 | PN ---
DATE: 10/29/2016 CARDIOLOGY FOLLOWUP SUBJECTIVE: The patient complains of hip pain, denies any chest pain or pressure to me. Denies elin rtness of breath to me. Discussed with the staff. MEDICATIONS: Reviewed. PHYSICAL EXAMINATION: VITAL SIGNS: Temperature 97.8, heart rate of 80, blood pressure 140/66, respiration rate of 18, sat urating 92% to 95% on 2 liter. HEENT: Normocephalic, atraumatic. CARDIOVASCULAR: Regular rate and rhythm, systolic murmur. PULMONARY: With no wheezes, no rhonchi. GASTROINTESTINAL: Soft, nontender. No rebound or guarding. EXTREMITIES: Trivial edema. NEUROLOGIC: Awake, alert, oriented to person and place. PSYCHIATRIC: Appears to be anxious, but very pleasant. LABORATORY: WBC of 12.3, hemoglobin 10.1, platelets of 60. Sodium 144, potassium 4, BUN of 11, cre atinine 0.8, glucose 117. TSH is 0.37 with free T4 is normal at 1.27. ASSESSMENT AND PLAN: 1. Cardiovascular preoperative evaluation. 2. Hip fracture. 3. Possible mild cardiomyopathy. 4. History of hypertension, currently under good control. 5. Severe dementia. 6. Abnormal EKG. RECOMMENDATIONS: We will continue with the current cardiac care including amlodipine, atenolol and benazepril. Awaiting surgery once the consent has been able to be obtained. Dictated By: NEGAR PHILLIPS/JOSE Conf#: [id number] DID#: [id number]
[2016-10-29 19:00] VITALS: BP 145/68; RESP 18
[2016-10-29] MEDS: DONEPEZIL 10 MG TAB PO SCH (21:11)
[2016-10-29] MEDS: MONTELUKAST 10 MG TAB PO SCH (21:11)
[2016-10-30] MEDS: DEXTROSE 5%-0.45% NACL 1,000 ML IV SCH ×2 (03:53→22:09)
[2016-10-30] MEDS: LEVOTHYROXINE 75 MCG TAB PO SCH (05:42)
[2016-10-30 06:16] LABS: MAGNESIUM 1.6 mg/dl (1.7-2.5); PHOSPHORUS 3.7 mg/dl (2.5-4.9); POTASSIUM 3.8 mmol/L (3.5-5.1)
[2016-10-30 06:19] LABS: CREATININE 0.84 mg/dl (0.44-1.00)
[2016-10-30 06:20] LABS: CALCIUM 8.2 mg/dl (8.4-10.2)
[2016-10-30 06:21] LABS: BASOPHILS % 0.3 % (0.0-2.0); EOSINOPHILS # 0.6 10^3/ul (0.0-0.5); EOSINOPHILS % 5.5 % (0.0-7.0); HEMATOCRIT 28.3 % (37.0-47.0); HEMOGLOBIN 9.8 g/dl (12.0-16.0); LYMPHOCYTES # 2.3 10^3/ul (0.8-2.9); LYMPHOCYTES % 19.7 % (15.0-51.0); MEAN CORPUSCULAR HGB CONC 34.5 g/dl (32.0-37.0); MEAN CORPUSCULAR VOLUME 95.5 fl (82.0-101.0); MEAN PLATELET VOLUME 8.6 fl (7.4-10.4); MONOCYTE # 0.9 10^3/ul (0.3-0.9); MONOCYTES % 7.5 % (0.0-11.0); NEUTROPHIL # 7.8 10^3/ul (1.6-7.5); PLATELET COUNT 260 10^3/UL (140-440); RED BLOOD COUNT 2.96 10^6/ul (4.20-5.40); RED CELL DISTRIBUTION WIDTH 13.6 % (11.5-14.5); UNCORRECTED WBC 11.7 10^3/ul (4.8-10.8); WHITE BLOOD COUNT 11.7 10^3/ul (4.8-10.8)
[2016-10-30 06:25] LABS: CONDITION 1
[2016-10-30 08:02] VITALS: BP 143/67; RESP 22
[2016-10-30] MEDS: DOCUSATE SODIUM 100 MG CAP PO SCH ×2 (09:01→21:04)
[2016-10-30] MEDS: FUROSEMIDE 20 MG TAB PO SCH (09:02)
[2016-10-30] MEDS: MULTIVITAMINS THERAPEUTIC TAB PO SCH (09:02)
[2016-10-30] MEDS: FAMOTIDINE 20 MG TAB PO SCH ×2 (09:02→21:04)
[2016-10-30] MEDS: BENAZEPRIL 20 MG TAB PO SCH ×2 (09:02→21:05)
[2016-10-30] MEDS: ASCORBIC ACID 500 MG TAB PO SCH (09:02)
[2016-10-30] MEDS: ATENOLOL 25 MG TAB PO SCH (09:03)
[2016-10-30] MEDS: AMLODIPINE 5 MG TAB PO SCH (09:04)
[2016-10-30] MEDS ORDERED: MAGNESIUM SULFATE 2 GM/50 ML 50 ML IVPB ONE ×2 (09:30→11:00)
--- NOTE | 2016-10-30 10:41 | PN ---
Date/Time of Note Date/Time of Note DATE: 10/30/16 TIME: 10:39 Assessment/Plan VTE Prophylaxis VTE Prophylaxis Intervention: SCD's Lines/Catheters IV Catheter Type (from Nrs): Peripheral IV Urinary Cath still in place: Yes Reason Cath still needed: other (indicate) (Hip fracture) Assessment/Plan Chief Complaint/Hosp Course 1. Left subcapital femoral neck fracture. The patient was seen and evaluated by orthopedic surgery. The patient needs surgical intervention. However, the patient is unable to give a consent for the surgery because of advanced dementia. The patient does not have a conservator. So the patient's surgery was canceled. postal worker has been involved for help with finding a conservator versus for possible bioethics committee decision for the consent and the appropriateness of surgery on this patient. Continue pain control. 2. Essential hypertension. Continue antihypertensives including p.r.n. antihypertensives for any systolic blood pressure readings greater than 170 mmHg. 3. Cardiomyopathy with ejection fraction of 45%. No evidence of any congestive heart failure exacerbation. Continue beta blockers and DRE inhibitors. 4. Hypothyroidism. Continue Synthroid. 5. Pulmonary hypertension. PA pressure of 42 mmHg as per 2-D echocardiogram. Continue supplemental oxygen. 6. Systemic inflammatory response syndrome with leukocytosis and febrile illness upon admission. Etiology unclear. Alcantar cultures negative. Will discontinue antibiotics since the patient has no evidence of any infection. 7. Dementia. Continue Aricept. Continue frequent reorientation. 8. Fluid, electrolytes, and nutrition. Continue pureed diet. 9. Deep venous thrombosis prophylaxis with bilateral sequential compression devices. 10. Gastrointestinal prophylaxis. Histamine 2 receptor blockers. PLAN: Replete magnesium. Discontinue antibiotics. Continue in house monitoring. Will await until social work is able to find a conservator versus setting up a bioethics meeting for arriving at a conclusion for the ethical appropriateness for surgical intervention on this patient. Case discussed with Dr. Ward. Problems: Subjective 24 Hr Interval Summary Free Text/Dictation Vital signs stable. Exam/Review of Systems Vital Signs Vitals Vital Signs Date Time Temp Pulse Resp B/P Pulse Ox O2 Delivery O2 Flow Rate FiO2 10/30/16 08:02 96.0 77 22 143/67 93 10/28/16 20:00 Nasal Cannula 2.0 Intake and Output 10/29/16 10/29/16 10/30/16 15:00 23:00 07:00 Intake Total 1000 ml 1130 ml 950 ml Output Total 1300 ml 200 ml Balance 1000 ml -170 ml 750 ml Exam GENERAL: This is a frail-looking female lying in bed in no apparent distress. HEENT: Head normocephalic and atraumatic. Eyes: Anicteric sclerae. Conjunctivae clear. ENT: Nasal septum is midline. Oral mucosa is dry. NECK: Supple. No JVD noticed. RESPIRATORY: Bilaterally diminished breath sounds. No adventitious breath sounds heard. No use of accessory muscles of respiration. CARDIAC: Regular rate and rhythm. S1 and S2 heard. ABDOMEN: Soft, nontender and nondistended. Bowel sounds positive in all 4 quadrants. GENITOURINARY: Deferred. EXTREMITIES: No cyanosis, no clubbing, no edema. Peripheral pulses are palpable. NEUROLOGIC: The patient is awake and alert and oriented x1. Moves all 4 extremities. Results Result Diagram: 10/30/16 0520 10/30/16 0520 Results 24 hrs Laboratory Tests Test 10/30/16 05:20 Anion Gap 14 Basophils # 0.0 Basophils % 0.3 Blood Urea Nitrogen 11 Calcium Level 8.2 L Carbon Dioxide Level 27 Chloride Level 105 Creatinine 0.84 Eosinophils # 0.6 H Eosinophils % 5.5 Glucose Level 113 Hematocrit 28.3 L Hemoglobin 9.8 L Lymphocytes # 2.3 Lymphocytes % 19.7 Magnesium Level 1.6 L Mean Corpuscular Hemoglobin 33.0 Mean Corpuscular Hemoglobin Concent 34.5 Mean Corpuscular Volume 95.5 Mean Platelet Volume 8.6 Monocytes # 0.9 Monocytes % 7.5 Neutrophils # 7.8 H Neutrophils % 67.0 Nucleated Red Blood Cells # 0.0 Nucleated Red Blood Cells % 0.0 Phosphorus Level 3.7 Platelet Count 260 Potassium Level 3.8 Red Blood Count 2.96 L Red Cell Distribution Width 13.6 Sodium Level 142 White Blood Count 11.7 H Medications Medications Current Medications Ondansetron HCl (Zofran Inj) 4 mg Q6H PRN IV NAUSEA AND/OR VOMITING; Start at 14:30 Acetaminophen (Tylenol Tab) 650 mg Q6H PRN PO PAIN LEVEL 1-3 OR FEVER Last administered on 10/27/16t 13:55; Admin Dose 650 MG; Start 10/26/16 at 14:30 Acetaminophen/ Hydrocodone Bitart ([place] (5/325)) 1 tab Q6H PRN PO MODERATE PAIN LEVEL 4-6; Start 10/26/16 at 14:30 Morphine Sulfate (morphine) 2 mg Q4H PRN IV SEVERE PAIN LEVEL 7-10 Last administered on 10/26/16 19:37; Admin Dose 2 MG; Start 10/26/16 at 14:30 Zolpidem Tartrate (Ambien) 5 mg QHS PRN PO SLEEP Last administered on 01:01; Admin Dose 5 MG; Start 10/26/16 at 14:30 Heparin Sodium (Porcine) (Heparin (5000 Units/0.5 ml)) 5,000 unit Q12 SC Last administered on 10/26/16 20:37; Admin Dose 5,000 UNIT; Start 10/26/16 at 21:00 ; Status Future Hold Hydralazine HCl 10 mg 10 mg Q4H PRN IV SBP>170; Start 10/26/16 at 15:30 Dextrose/Sodium Chloride (D5-1/2ns) 1,000 ml @ 60 mls/hr [id number] IV Last administered on 10/30/16 03:53; Admin Dose 60 MLS/HR; Start 10/27/16 at 23:00 Amlodipine Besylate (Norvasc) 5 mg DAILY PO Last administered on 10/30/16 09: 04; Admin Dose 5 MG; Start 10/29/16 at 09:00 Ascorbic Acid (Vitamin C) 500 mg DAILY PO Last administered on 10/30/16 09:02 ; Admin Dose 500 MG; Start 10/29/16 at 09:00 Atenolol (Tenormin) 25 mg DAILY PO Last administered on 10/30/16 09:03; Admin Dose 25 MG; Start 10/29/16 at 09:00 Benazepril HCl (Lotensin) 20 mg BID PO Last administered on 10/30/16 09:02; Admin Dose 20 MG; Start 10/28/16 at 21:00 Docusate Sodium (Colace) 100 mg BID PO Last administered on 10/30/16 09:01; Admin Dose 100 MG; Start 10/28/16 at 21:00 Donepezil HCl (Aricept) 10 mg QHS PO Last administered on 10/29/16 21:11; Admin Dose 10 MG; Start 10/28/16 at 21:00 Ergocalciferol (Drisdol) 50,000 unit Q7D PO ; Start 11/03/16 at 09:00 Furosemide (Lasix) 20 mg DAILY PO Last administered on 10/30/16 09:02; Admin Dose 20 MG; Start 10/29/16 at 09:00 Levothyroxine Sodium (Synthroid) 75 mcg DAILY@06 PO Last administered on 05:42; Admin Dose 75 MCG; Start 10/29/16 at 06:00 Montelukast Sodium (Singulair) 10 mg HS PO Last administered on 10/29/16 21:11 ; Admin Dose 10 MG; Start 10/28/16 at 21:00 Multivitamins Therapeutic (Theragran) 1 tab DAILY PO Last administered on 09:02; Admin Dose 1 TAB; Start 10/29/16 at 09:00 Famotidine 20 mg 20 mg BID PO Last administered on 10/30/16 09:02; Admin Dose 20 MG; Start 10/28/16 at 21:00 Ceftriaxone Sodium 50 ml @ 100 mls/hr Q24H IVPB Last administered on 14:30; Admin Dose 100 MLS/HR; Start 10/28/16 at 13:00 Magnesium Sulfate 50 ml @ 25 mls/hr ONCE ONCE IVPB ; Start 10/30/16 at 09:30; Stop 10/30/16 at 11:29 Magnesium Sulfate (Magnesium Sulfate 2 Gm/50 ml) 50 ml @ 25 mls/hr ONCE ONCE IVPB ; Start 10/30/16 at 11:00; Stop 10/30/16 at 12:59; Status DEIDRE MENESES NP Oct 30, 2016 10:41
--- NOTE | 2016-10-30 10:50 | PN ---
DATE: 10/30/2016 CARDIOLOGY FOLLOWUP SUBJECTIVE: No new cardiac events. Patient has no chest pain or pressure. Still confused but resp onds appropriately. She still has hip pain. MEDICATIONS: Reviewed as per medical records. PHYSICAL EXAMINATION: VITAL SIGNS: Temperature 98.6, heart rate of 77, blood pressure 143/67, respiratory rate of 22, sa turating 97%. HEENT: Normocephalic, atraumatic. Pupils are equal. CARDIOVASCULAR: Regular rate and rhythm, systolic murmur. PULMONARY: No wheezes anteriorly. GASTROINTESTINAL: Soft, nontender. No rebound or guarding. EXTREMITIES: Trivial edema. NEUROLOGIC: Awake, responds appropriately. Oriented to person and place. PSYCHIATRIC: Anxious but pleasant. LABORATORY: WBC of 11.7, hemoglobin 9.8, platelets of 260. Sodium 142, potassium 3.8, BUN of 11, c reatinine 0.84, glucose 113, magnesium 1.6. ASSESSMENT AND PLAN: 1. Cardiovascular preoperative evaluation. 2. Hip fracture. 3. Possible mild cardiomyopathy. 4. Hypertension, under good control. 5. Dementia. 6. Abnormal EKG. RECOMMENDATIONS: We will continue with the current cardiac care. Blood pressure control with combi [place] of beta syd and DRE inhibitor and amlodipine. Also, I will replace the magnesium. Await ing ortho surgery. Dictated By: NEGAR PHILLIPS/JOSE Conf#: [id number] DID#: [id number]
[2016-10-30 19:00] VITALS: BP 116/56; RESP 16
[2016-10-30] MEDS: DONEPEZIL 10 MG TAB PO SCH (21:04)
[2016-10-30] MEDS: MONTELUKAST 10 MG TAB PO SCH (21:04)
[2016-10-31] MEDS: LEVOTHYROXINE 75 MCG TAB PO SCH (05:36)
[2016-10-31 06:03] LABS: BASOPHILS % 0.4 % (0.0-2.0); EOSINOPHILS # 0.6 10^3/ul (0.0-0.5); HEMATOCRIT 28.4 % (37.0-47.0); HEMOGLOBIN 10.2 g/dl (12.0-16.0); LYMPHOCYTES % 23.7 % (15.0-51.0); MEAN CORPUSCULAR HEMOGLOBIN 35.9 pg (29.0-33.0); MEAN CORPUSCULAR VOLUME 99.8 fl (82.0-101.0); MEAN PLATELET VOLUME 8.3 fl (7.4-10.4); MONOCYTES % 7.7 % (0.0-11.0); NEUTROPHIL # 7.9 10^3/ul (1.6-7.5); NEUTROPHILS % 63.2 % (39.0-77.0); PLATELET COUNT 267 10^3/UL (140-440); RED BLOOD COUNT 2.85 10^6/ul (4.20-5.40); RED CELL DISTRIBUTION WIDTH 13.1 % (11.5-14.5); UNCORRECTED WBC 12.6 10^3/ul (4.8-10.8); WHITE BLOOD COUNT 12.6 10^3/ul (4.8-10.8)
[2016-10-31 06:07] LABS: POTASSIUM 3.8 mmol/L (3.5-5.1)
[2016-10-31 06:09] LABS: CREATININE 0.83 mg/dl (0.44-1.00)
[2016-10-31 06:10] LABS: CALCIUM 8.5 mg/dl (8.4-10.2)
[2016-10-31 06:11] LABS: PHOSPHORUS 4.1 mg/dl (2.5-4.9)
[2016-10-31 06:37] LABS: CONDITION 1
[2016-10-31 07:33] VITALS: BP 154/70; RESP 20
[2016-10-31] MEDS: AMLODIPINE 5 MG TAB PO SCH (09:17)
[2016-10-31] MEDS: DOCUSATE SODIUM 100 MG CAP PO SCH ×2 (09:17→21:48)
[2016-10-31] MEDS: FAMOTIDINE 20 MG TAB PO SCH ×2 (09:18→21:49)
[2016-10-31] MEDS: MULTIVITAMINS THERAPEUTIC TAB PO SCH (09:18)
[2016-10-31] MEDS: ATENOLOL 25 MG TAB PO SCH (09:18)
[2016-10-31] MEDS: ASCORBIC ACID 500 MG TAB PO SCH (09:18)
[2016-10-31] MEDS: FUROSEMIDE 20 MG TAB PO SCH (09:18)
[2016-10-31] MEDS: BENAZEPRIL 20 MG TAB PO SCH ×2 (09:19→22:08)
[2016-10-31] MEDS: DEXTROSE 5%-0.45% NACL 1,000 ML IV SCH ×2 (10:20→19:12)
--- NOTE | 2016-10-31 10:34 | PN ---
DATE: 10/31/2016 SUBJECTIVE: Discussed with the staff. The patient still complains of hip pain. No chest pain or p ressure. No palpitation. MEDICATIONS: Reviewed. PHYSICAL EXAMINATION: VITAL SIGNS: Temperature 98.9, heart rate of 79, blood pressure 150/70, respiration rate of 20, sat urating 94%. HEENT: Normocephalic, atraumatic. No acute distress. Pupils equal and round. CARDIOVASCULAR: Regular rate and rhythm, systolic murmur. PULMONARY: Minimal rhonchi at the base. GASTROINTESTINAL: Soft, nontender. No rebound or guarding. EXTREMITIES: Trivial edema of lower extremity. NEUROLOGIC: Awake, responds appropriately, oriented to person. PSYCHIATRIC: Appeared to be calm and pleasant. LABORATORY: WBC of 12.6, hemoglobin 10.2, platelets 267. Sodium 142, potassium 3.8, BUN of 11, cre atinine 0.83, glucose 112, mag is 2. ASSESSMENT AND PLAN: 1. Cardiovascular preop evaluation. 2. Hip fracture. 3. Mild cardiomyopathy. 4. Hypertension, under good control. 5. Dementia. 6. Abnormal EKG. RECOMMENDATIONS: We will continue with the current cardiac care. Awaiting consent for the surgery. Dictated By: NEGAR LIU MD AV/JOSE Conf#: [id number] DID#: [id number] CC: DEIDRE TOLLIVER DIRECTOR CARDIOLOGY;*End*
--- NOTE | 2016-10-31 11:14 | PN ---
Date/Time of Note Date/Time of Note DATE: 10/31/16 TIME: 11:12 Assessment/Plan VTE Prophylaxis VTE Prophylaxis Intervention: SCD's Lines/Catheters IV Catheter Type (from Nrs): Peripheral IV Urinary Cath still in place: Yes Reason Cath still needed: other (indicate) (Hip fracture) Assessment/Plan Chief Complaint/Hosp Course 1. Left subcapital femoral neck fracture. The patient was seen and evaluated by orthopedic surgery. The patient needs surgical intervention. However, the patient is unable to give a consent for the surgery because of advanced dementia. The patient does not have a conservator. So the patient's surgery was canceled. sanitation worker cleaning machinery has been involved for help with finding a conservator versus for possible bioethics committee decision for the consent and the appropriateness of surgery on this patient. Continue pain control. 2. Essential hypertension. Continue antihypertensives including p.r.n. antihypertensives for any systolic blood pressure readings greater than 170 mmHg. 3. Cardiomyopathy with ejection fraction of 45%. No evidence of any congestive heart failure exacerbation. Continue beta blockers and DRE inhibitors. 4. Hypothyroidism. Continue Synthroid. 5. Pulmonary hypertension. PA pressure of 42 mmHg as per 2-D echocardiogram. Continue supplemental oxygen. 6. Status post systemic inflammatory response syndrome with leukocytosis and febrile illness upon admission. Etiology unclear. Alcantar cultures negative. Antibiotics has been discontinued. 7. Dementia. Continue Aricept. Continue frequent reorientation. 8. Fluid, electrolytes, and nutrition. Continue pureed diet. 9. Deep venous thrombosis prophylaxis with bilateral sequential compression devices. 10. Gastrointestinal prophylaxis. Histamine 2 receptor blockers. PLAN: Continue in house monitoring. Will await until social work is able to find a conservator versus setting up a bioethics meeting for arriving at a conclusion for the ethical appropriateness for surgical intervention on this patient. Case discussed with Dr. Ward. Problems: Subjective 24 Hr Interval Summary Free Text/Dictation Vital signs stable. Exam/Review of Systems Vital Signs Vitals Vital Signs Date Time Temp Pulse Resp B/P Pulse Ox O2 Delivery O2 Flow Rate FiO2 10/31/16 07:33 98.9 79 20 154/70 94 10/28/16 20:00 Nasal Cannula 2.0 Intake and Output 10/30/16 10/30/16 10/31/16 15:00 23:00 07:00 Intake Total 50 ml 1290 ml 1010 ml Output Total 1100 ml 700 ml Balance 50 ml 190 ml 310 ml Exam GENERAL: This is a frail-looking female lying in bed in no apparent distress. HEENT: Head normocephalic and atraumatic. Eyes: Anicteric sclerae. Conjunctivae clear. ENT: Nasal septum is midline. Oral mucosa is dry. NECK: Supple. No JVD noticed. RESPIRATORY: Bilaterally diminished breath sounds. No adventitious breath sounds heard. No use of accessory muscles of respiration. CARDIAC: Regular rate and rhythm. S1 and S2 heard. ABDOMEN: Soft, nontender and nondistended. Bowel sounds positive in all 4 quadrants. GENITOURINARY: Deferred. EXTREMITIES: No cyanosis, no clubbing, no edema. Peripheral pulses are palpable. NEUROLOGIC: The patient is awake and alert and oriented x1. Moves all 4 extremities. Results Result Diagram: 10/31/16 0510 10/31/16 0510 Results 24 hrs Laboratory Tests Test 10/31/16 05:10 Anion Gap 14 Basophils # 0.0 Basophils % 0.4 Blood Urea Nitrogen 11 Calcium Level 8.5 Carbon Dioxide Level 29 Chloride Level 103 Creatinine 0.83 Eosinophils # 0.6 H Eosinophils % 5.0 Glucose Level 112 Hematocrit 28.4 L Hemoglobin 10.2 L Lymphocytes # 3.0 H Lymphocytes % 23.7 Magnesium Level 2.0 Mean Corpuscular Hemoglobin 35.9 H Mean Corpuscular Hemoglobin Concent 36.0 Mean Corpuscular Volume 99.8 Mean Platelet Volume 8.3 Monocytes # 1.0 H Monocytes % 7.7 Neutrophils # 7.9 H Neutrophils % 63.2 Nucleated Red Blood Cells # 0.0 Nucleated Red Blood Cells % 0.0 Phosphorus Level 4.1 Platelet Count 267 Potassium Level 3.8 Red Blood Count 2.85 L Red Cell Distribution Width 13.1 Sodium Level 142 White Blood Count 12.6 H Medications Medications Current Medications Ondansetron HCl (Zofran Inj) 4 mg Q6H PRN IV NAUSEA AND/OR VOMITING; Start at 14:30 Acetaminophen (Tylenol Tab) 650 mg Q6H PRN PO PAIN LEVEL 1-3 OR FEVER Last administered on 10/27/16t 13:55; Admin Dose 650 MG; Start 10/26/16 at 14:30 Acetaminophen/ Hydrocodone Bitart ([place] (5/325)) 1 tab Q6H PRN PO MODERATE PAIN LEVEL 4-6; Start 10/26/16 at 14:30 Morphine Sulfate (morphine) 2 mg Q4H PRN IV SEVERE PAIN LEVEL 7-10 Last administered on 10/26/16 19:37; Admin Dose 2 MG; Start 10/26/16 at 14:30 Zolpidem Tartrate (Ambien) 5 mg QHS PRN PO SLEEP Last administered on 01:01; Admin Dose 5 MG; Start 10/26/16 at 14:30 Heparin Sodium (Porcine) (Heparin (5000 Units/0.5 ml)) 5,000 unit Q12 SC Last administered on 10/26/16 20:37; Admin Dose 5,000 UNIT; Start 10/26/16 at 21:00 ; Status Future Hold Hydralazine HCl 10 mg 10 mg Q4H PRN IV SBP>170; Start 10/26/16 at 15:30 Dextrose/Sodium Chloride (D5-1/2ns) 1,000 ml @ 60 mls/hr [id number] IV Last administered on 10/30/16 22:09; Admin Dose 60 MLS/HR; Start 10/27/16 at 23:00 Amlodipine Besylate (Norvasc) 5 mg DAILY PO Last administered on 10/31/16 09: 17; Admin Dose 5 MG; Start 10/29/16 at 09:00 Ascorbic Acid (Vitamin C) 500 mg DAILY PO Last administered on 10/31/16 09:18 ; Admin Dose 500 MG; Start 10/29/16 at 09:00 Atenolol (Tenormin) 25 mg DAILY PO Last administered on 10/31/16 09:18; Admin Dose 25 MG; Start 10/29/16 at 09:00 Benazepril HCl (Lotensin) 20 mg BID PO Last administered on 10/31/16 09:19; Admin Dose 20 MG; Start 10/28/16 at 21:00 Docusate Sodium (Colace) 100 mg BID PO Last administered on 10/31/16 09:17; Admin Dose 100 MG; Start 10/28/16 at 21:00 Donepezil HCl (Aricept) 10 mg QHS PO Last administered on 10/30/16 21:04; Admin Dose 10 MG; Start 10/28/16 at 21:00 Ergocalciferol (Drisdol) 50,000 unit Q7D PO ; Start 11/03/16 at 09:00 Furosemide (Lasix) 20 mg DAILY PO Last administered on 10/31/16 09:18; Admin Dose 20 MG; Start 10/29/16 at 09:00 Levothyroxine Sodium (Synthroid) 75 mcg DAILY@06 PO Last administered on 05:36; Admin Dose 75 MCG; Start 10/29/16 at 06:00 Montelukast Sodium (Singulair) 10 mg HS PO Last administered on 10/30/16 21:04 ; Admin Dose 10 MG; Start 10/28/16 at 21:00 Multivitamins Therapeutic (Theragran) 1 tab DAILY PO Last administered on 09:18; Admin Dose 1 TAB; Start 10/29/16 at 09:00 Famotidine (Pepcid) 20 mg BID PO Last administered on 10/31/16 09:18; Admin Dose 20 MG; Start 10/28/16 at 21:00 DEIDRE TOLLIVER NP Oct 31, 2016 11:14
--- NOTE | 2016-10-31 16:18 | EN ---
Date/Time of Note Date/Time of Note DATE: 10/31/16 TIME: 16:11 Event Note Medicine Medicine Event Note A bioethics committee meeting was conducted on behalf of this patient today. The bioethics committee had arrived at a conclusion that the patient needs surgical repair for her left hip fracture. Consequently, was informed on 10/31/2016 at around 2:30 PM that the patient's consent for surgical intervention has been approved by the bioethics committee. Nevertheless, Dr. Sutherland wanted the flight communications officer orthopedic surgeon for this week to be consulted on the patient for surgical intervention. The bioethics committee also arrived at a conclusion that ethically the patient needs to be made a DNR because of the patient's multiple comorbidities, underlying dementia, and the inability to make prudent decisions on her behalf. This decision was made in best interest of the patient. Therefore, the patient will be made a DNR after the surgical intervention [hip surgery]. Case was discussed with Dr. Ward. DEIDRE TOLLIVER NP Oct 31, 2016 16:18
[2016-10-31] MEDS ORDERED: VITAMIN A & D 5 GM OINT PACKET TOP ONE (18:51)
[2016-10-31 19:48] VITALS: BP 115/58; RESP 18
[2016-10-31] MEDS: DONEPEZIL 10 MG TAB PO SCH (21:48)
[2016-10-31] MEDS: MONTELUKAST 10 MG TAB PO SCH (21:48)
[2016-11-01] VITALS (26 sets, daily range): BP systolic 134–175; BP diastolic 59–89; PULSE 70–90; RESP 16–26
--- NOTE | 2016-11-01 02:00 | CONS ---
DATE OF ADMISSION: 10/26/2016 DATE OF CONSULTATION: 10/31/2016 ORTHOPEDIC CONSULTATION: HISTORY OF PRESENT ILLNESS: The patient is an 86-year-old female, a resident of a [facility] with some dementia, who was admitted on 10/26/2016, when she was brought into the emergency room because of painful limit of motion involving her left hip. She obviously had a fall out of her bed, landing on her left buttock in her long-term facility, and developed the presenting prob lems. She was found to have a fracture involving the femoral neck of the left hip; however, surgica l treatment could not be carried out until not because of the difficulties getting consent for surge ry. PHYSICAL EXAMINATION: GENERAL: My examination revealed an 86-year-old female, who was not in any acute distress. EXTREMITIES: There was tenderness and swelling around the left hip. There was a shortening and abn ormal external rotation of the left lower extremity. Attempted range of motion of the left hip was provoking severe pain. There were no signs of neurovascular compromise involving the left lower ext remity. DIAGNOSTIC STUDIES: X-rays of the left hip revealed a presence of subcapital femoral neck fracture of the left hip. Of interest is that there is a hemiarthroplasty prosthetic in place on the right h ip. DIAGNOSTIC IMPRESSION: Subcapital femoral neck fracture of the left hip. TREATMENT PLAN: To carry out the hemiarthroplasty of the left hip at earliest convenience. Dictated By: ERIKA BAILON/NTS Conf#: [id number] DID#: [id number]
[2016-11-01] MEDS: LEVOTHYROXINE 75 MCG TAB PO SCH (05:40)
[2016-11-01 06:56] LABS: MAGNESIUM 1.6 mg/dl (1.7-2.5); PHOSPHORUS 4.3 mg/dl (2.5-4.9)
[2016-11-01] MEDS ORDERED: PROPOFOL 200 MG INJ ONE (07:00)
[2016-11-01] MEDS ORDERED: CEFAZOLIN 1 GM INJ ONE (07:00)
[2016-11-01 07:01] LABS: POTASSIUM 3.6 mmol/L (3.5-5.1)
[2016-11-01 07:03] LABS: CREATININE 0.86 mg/dl (0.44-1.00)
[2016-11-01 07:04] LABS: CALCIUM 8.8 mg/dl (8.4-10.2)
--- NOTE | 2016-11-01 09:04 | CONS ---
DATE OF ADMISSION: 10/26/2016 DATE OF CONSULTATION: 10/31/2016 BIOMEDICAL ETHICS CONSULTATION NOTE HISTORY OF PRESENT ILLNESS: Ms. Swenson is an 86-year-old woman who has been a long-term resident of a local assisted living facility. She has been there for over a decade and during that timeframe, b y medical report, she has had a decrease in mental status. After repeated attempts at locating peop le to speak for her, no identifiable family, friends, DPOA or guardian are locatable. The patient s uffered a fall, which has brought her in, and requires surgical repair of a fracture. Due to the la ck of anybody competent to sign a consent, biomedical ethics was convened. It is the opinion of the biomedical ethics committee given that this situation was deemed nonemergency by Dr. Dumont, that we could not fast-track this and she has a formal biomedical ethics consultation held. It is t he opinion of the biomedical ethics committee that operative repair of this hip would to be in the p atient's best interest to reduce pain and suffering. It is anticipated, however, that once this has been repaired, that she will not be able to return to the assisted living facility and will be barry g to an extended care facility. Given the logistical changes this requires, the social work staff w ill be attempting to get her initiated with the public guardian's office. In addition, the [facility] ethics committee was of the opinion that given her overall status, with her advanced age and orga yousif brain syndrome and not able to comment for herself, that DNR status would be appropriate if that was felt to be appropriate by the primary medical team. As of now, I have signed the consent for t he surgical procedure. Dictated By: NIDA GAONA MD, JR/NTS Conf#: [id number] DID#: [id number] CC: BRYCE REDD MD; KAREN DUMONT MD; ERIKA CARBAJAL MD;*End*
[2016-11-01 10:24] LABS: BASOPHIL # 0.1 10^3/ul (0.0-0.1); BASOPHILS % 1.3 % (0.0-2.0); EOSINOPHILS # 0.5 10^3/ul (0.0-0.5); EOSINOPHILS % 5.7 % (0.0-7.0); HEMATOCRIT 31.1 % (37.0-47.0); HEMOGLOBIN 10.4 g/dl (12.0-16.0); LYMPHOCYTES # 2.9 10^3/ul (0.8-2.9); MEAN CORPUSCULAR HEMOGLOBIN 30.7 pg (29.0-33.0); MEAN CORPUSCULAR HGB CONC 33.2 g/dl (32.0-37.0); MEAN CORPUSCULAR VOLUME 92.4 fl (82.0-101.0); MEAN PLATELET VOLUME 7.9 fl (7.4-10.4); MONOCYTE # 0.8 10^3/ul (0.3-0.9); MONOCYTES % 8.2 % (0.0-11.0); NEUTROPHIL # 5.2 10^3/ul (1.6-7.5); NEUTROPHILS % 54.8 % (39.0-77.0); PLATELET COUNT 282 10^3/UL (140-440); RED BLOOD COUNT 3.37 10^6/ul (4.20-5.40); RED CELL DISTRIBUTION WIDTH 13.3 % (11.5-14.5); UNCORRECTED WBC 9.6 10^3/ul (4.8-10.8); WHITE BLOOD COUNT 9.6 10^3/ul (4.8-10.8)
[2016-11-01] MEDS: FUROSEMIDE 20 MG TAB PO SCH (10:25)
[2016-11-01] MEDS: ATENOLOL 25 MG TAB PO SCH (10:25)
[2016-11-01] MEDS: AMLODIPINE 5 MG TAB PO SCH (10:26)
[2016-11-01] MEDS: FAMOTIDINE 20 MG TAB PO SCH ×2 (10:26→23:00)
[2016-11-01 10:27] LABS: CONDITION 1
[2016-11-01] MEDS: MULTIVITAMINS THERAPEUTIC TAB PO SCH (10:27)
[2016-11-01] MEDS: DOCUSATE SODIUM 100 MG CAP PO SCH ×2 (10:27→23:00)
[2016-11-01] MEDS: ASCORBIC ACID 500 MG TAB PO SCH (10:27)
[2016-11-01] MEDS: BENAZEPRIL 20 MG TAB PO SCH ×2 (10:27→23:00)
--- NOTE | 2016-11-01 11:15 | PN ---
Date/Time of Note Date/Time of Note DATE: 11/01/16 TIME: 11:13 Assessment/Plan VTE Prophylaxis VTE Prophylaxis Intervention: SCD's Lines/Catheters IV Catheter Type (from Nrs): Peripheral IV Urinary Cath still in place: Yes Reason Cath still needed: other (indicate) (Hip fracture) Assessment/Plan Chief Complaint/Hosp Course 1. Left subcapital femoral neck fracture. Patient is scheduled for surgical repair. 2. Essential hypertension. Continue antihypertensives including p.r.n. antihypertensives for any systolic blood pressure readings greater than 170 mmHg. 3. Cardiomyopathy with ejection fraction of 45%. No evidence of any congestive heart failure exacerbation. Continue beta blockers and DRE inhibitors. 4. Hypothyroidism. Continue Synthroid. 5. Pulmonary hypertension. PA pressure of 42 mmHg as per 2-D echocardiogram. Continue supplemental oxygen. 6. Status post systemic inflammatory response syndrome with leukocytosis and febrile illness upon admission. Etiology unclear. Alcantar cultures negative. Antibiotics has been discontinued. 7. Dementia. Continue Aricept. Continue frequent reorientation. 8. Fluid, electrolytes, and nutrition. Continue pureed diet. 9. Deep venous thrombosis prophylaxis with bilateral sequential compression devices. 10. Gastrointestinal prophylaxis. Histamine 2 receptor blockers. PLAN: The patient is scheduled for a left hip surgery. Replete magnesium. Case discussed with Dr. Ward. Perioperative risk stratification: The patient is an elderly 86-year-old female with underlying dementia, cardiomyopathy, pulmonary hypertension, hypothyroidism , and essential hypertension. The patient has multiple comorbidities and she is elderly with underlying dementia. Based on this, she is at moderate risk for medical complications perioperatively. Given that, the benefits of left hip surgery would outweigh the potential risks. Problems: Subjective 24 Hr Interval Summary Free Text/Dictation Left hip pain well controlled. Exam/Review of Systems Vital Signs Vitals Vital Signs Date Time Temp Pulse Resp B/P Pulse Ox O2 Delivery O2 Flow Rate FiO2 11/01/16 08:28 98.4 74 20 170/72 92 10/28/16 20:00 Nasal Cannula 2.0 Intake and Output 10/31/16 10/31/16 11/01/16 15:00 23:00 07:00 Intake Total 810 ml 700 ml Output Total 1550 ml 600 ml Balance -740 ml 100 ml Exam GENERAL: This is a frail-looking female lying in bed in no apparent distress. HEENT: Head normocephalic and atraumatic. Eyes: Anicteric sclerae. Conjunctivae clear. ENT: Nasal septum is midline. Oral mucosa is dry. NECK: Supple. No JVD noticed. RESPIRATORY: Bilaterally diminished breath sounds. No adventitious breath sounds heard. No use of accessory muscles of respiration. CARDIAC: Regular rate and rhythm. S1 and S2 heard. ABDOMEN: Soft, nontender and nondistended. Bowel sounds positive in all 4 quadrants. GENITOURINARY: Deferred. EXTREMITIES: No cyanosis, no clubbing, no edema. Peripheral pulses are palpable. NEUROLOGIC: The patient is awake and alert and oriented x1. Moves all 4 extremities. Results Result Diagram: 11/01/16 0520 11/01/16 0520 Results 24 hrs Laboratory Tests Test 11/01/16 05:20 Anion Gap 16 Basophils # 0.1 Basophils % 1.3 Blood Urea Nitrogen 13 Calcium Level 8.8 Carbon Dioxide Level 28 Chloride Level 105 Creatinine 0.86 Eosinophils # 0.5 Eosinophils % 5.7 Glucose Level 113 Hematocrit 31.1 L Hemoglobin 10.4 L Lymphocytes # 2.9 Lymphocytes % 30.0 Magnesium Level 1.6 L Mean Corpuscular Hemoglobin 30.7 Mean Corpuscular Hemoglobin Concent 33.2 Mean Corpuscular Volume 92.4 Mean Platelet Volume 7.9 Monocytes # 0.8 Monocytes % 8.2 Neutrophils # 5.2 Neutrophils % 54.8 Nucleated Red Blood Cells # 0.0 Nucleated Red Blood Cells % 0.0 Phosphorus Level 4.3 Platelet Count 282 Potassium Level 3.6 Red Blood Count 3.37 L Red Cell Distribution Width 13.3 Sodium Level 145 H White Blood Count 9.6 # Medications Medications Current Medications Ondansetron HCl (Zofran Inj) 4 mg Q6H PRN IV NAUSEA AND/OR VOMITING; Start at 14:30 Acetaminophen (Tylenol Tab) 650 mg Q6H PRN PO PAIN LEVEL 1-3 OR FEVER Last administered on 10/27/16 13:55; Admin Dose 650 MG; Start 10/26/16 at 14:30 Acetaminophen/ Hydrocodone Bitart ([place] (5/325)) 1 tab Q6H PRN PO MODERATE PAIN LEVEL 4-6; Start 10/26/16 at 14:30 Morphine Sulfate (morphine) 2 mg Q4H PRN IV SEVERE PAIN LEVEL 7-10 Last administered on 10/26/16 19:37; Admin Dose 2 MG; Start 10/26/16 at 14:30 Zolpidem Tartrate (Ambien) 5 mg QHS PRN PO SLEEP Last administered on 01:01; Admin Dose 5 MG; Start 10/26/16 at 14:30 Heparin Sodium (Porcine) (Heparin (5000 Units/0.5 ml)) 5,000 unit Q12 SC Last administered on 10/26/16 20:37; Admin Dose 5,000 UNIT; Start 10/26/16 at 21:00 ; Status Future Hold Hydralazine HCl 10 mg 10 mg Q4H PRN IV SBP>170; Start 10/26/16 at 15:30 Dextrose/Sodium Chloride (D5-1/2ns) 1,000 ml @ 60 mls/hr [id number] IV Last administered on 10/31/16 19:12; Admin Dose 60 MLS/HR; Start 10/27/16 at 23:00 Amlodipine Besylate (Norvasc) 5 mg DAILY PO Last administered on 11/01/16 10: 26; Admin Dose 5 MG; Start 10/29/16 at 09:00 Ascorbic Acid (Vitamin C) 500 mg DAILY PO Last administered on 11/01/16 10:27 ; Admin Dose 500 MG; Start 10/29/16 at 09:00 Atenolol (Tenormin) 25 mg DAILY PO Last administered on 11/01/16 10:25; Admin Dose 25 MG; Start 10/29/16 at 09:00 Benazepril HCl (Lotensin) 20 mg BID PO Last administered on 11/01/16 10:27; Admin Dose 20 MG; Start 10/28/16 at 21:00 Docusate Sodium (Colace) 100 mg BID PO Last administered on 11/01/16 10:27; Admin Dose 100 MG; Start 10/28/16 at 21:00 Donepezil HCl (Aricept) 10 mg QHS PO Last administered on 10/31/16 21:48; Admin Dose 10 MG; Start 10/28/16 at 21:00 Ergocalciferol (Drisdol) 50,000 unit Q7D PO ; Start 11/03/16 at 09:00 Furosemide (Lasix) 20 mg DAILY PO Last administered on 11/01/16 10:25; Admin Dose 20 MG; Start 10/29/16 at 09:00 Levothyroxine Sodium (Synthroid) 75 mcg DAILY@06 PO Last administered on 05:40; Admin Dose 75 MCG; Start 10/29/16 at 06:00 Montelukast Sodium (Singulair) 10 mg HS PO Last administered on 10/31/16 21:48 ; Admin Dose 10 MG; Start 10/28/16 at 21:00 Multivitamins Therapeutic (Theragran) 1 tab DAILY PO Last administered on 10:27; Admin Dose 1 TAB; Start 10/29/16 at 09:00 Famotidine (Pepcid) 20 mg BID PO Last administered on 11/01/16 10:26; Admin Dose 20 MG; Start 10/28/16 at 21:00 DEIDRE TOLLIVER NP Nov 01, 2016 11:15
[2016-11-01] MEDS ORDERED: MAGNESIUM SULFATE 2 GM/50 ML 50 ML IVPB ONE (12:00)
[2016-11-01] MEDS: morphine 2 MG INJ IV PRN (15:23)
[2016-11-01] MEDS: DEXTROSE 5%-0.45% NACL 1,000 ML IV SCH (15:29)
[2016-11-01] MEDS ORDERED: ETOMIDATE 20 MG INJ ONE (18:29)
[2016-11-01] MEDS ORDERED: MIDAZOLAM 1 MG/ML 2 ML INJ ONE ×2 (18:29)
[2016-11-01] MEDS ORDERED: FENTAnyl 50 MCG/ML VIAL ONE (18:29)
[2016-11-01] MEDS ORDERED: LIDOCAINE 2% (SDV) 5 ML INJ ONE (18:29)
[2016-11-01] MEDS ORDERED: ROCURONIUM 50 MG INJ ONE (18:29)
[2016-11-01] MEDS ORDERED: POLYMYXIN/BACITRACIN 1L IRRIG ONE (19:04)
[2016-11-01] MEDS ORDERED: EPHEDrine SULFATE 50 MG/5 ML SYG ONE (20:25)
[2016-11-01] MEDS ORDERED: PHENYLephrine (100 MCG/ML) 5ML SYG ONE (20:26)
[2016-11-01] MEDS ORDERED: DEXAMETHASONE 4 MG/ML 1 ML INJ ONE (20:30)
[2016-11-01] MEDS ORDERED: ONDANSETRON 4 MG INJ ONE (20:30)
[2016-11-01] MEDS ORDERED: NEOSTIGMINE 3 MG/3 ML SYRINGE ONE (20:40)
[2016-11-01] MEDS ORDERED: GLYCOPYRROLATE 0.4 MG INJ ONE (20:40)
[2016-11-01] MEDS ORDERED: NACL 0.9% 3 ML SYG IV SCH (21:00)
[2016-11-01] MEDS ORDERED: MEPERIDINE 25 MG INJ IV PRN (21:30)
[2016-11-01] MEDS ORDERED: ONDANSETRON 4 MG INJ IV PRN (21:30)
[2016-11-01] MEDS ORDERED: DIPHENHYDRAMINE 50 MG INJ IV PRN (21:30)
[2016-11-01] MEDS ORDERED: HYDROCODONE/APAP (5/325) TAB PO PRN (21:30)
[2016-11-01] MEDS ORDERED: LABETALOL HCL 20MG INJ IV PRN (21:30)
[2016-11-01] MEDS ORDERED: HYDROmorphONE (0.2 MG/ML) 10ML SYG IV PRN ×2 (21:30)
[2016-11-01] MEDS ORDERED: hydrALAzine 20 MG INJ IV PRN (21:30)
[2016-11-01] MEDS ORDERED: FENTAnyl 50 MCG/ML VIAL IV PRN (21:30)
[2016-11-01 22:00] LABS: BASOPHIL # 0.1 10^3/ul (0.0-0.1); BASOPHILS % 0.2 % (0.0-2.0); EOSINOPHILS # 0.8 10^3/ul (0.0-0.5); EOSINOPHILS % 3.1 % (0.0-7.0); HEMATOCRIT 38.2 % (37.0-47.0); LYMPHOCYTES % 15.9 % (15.0-51.0); MEAN CORPUSCULAR HEMOGLOBIN 30.9 pg (29.0-33.0); MEAN CORPUSCULAR VOLUME 90.7 fl (82.0-101.0); MEAN PLATELET VOLUME 8.1 fl (7.4-10.4); MONOCYTE # 1.3 10^3/ul (0.3-0.9); MONOCYTES % 5.1 % (0.0-11.0); NEUTROPHIL # 19.1 10^3/ul (1.6-7.5); NEUTROPHILS % 75.7 % (39.0-77.0); PLATELET COUNT 286 10^3/UL (140-440); RED BLOOD COUNT 4.21 10^6/ul (4.20-5.40); RED CELL DISTRIBUTION WIDTH 13.4 % (11.5-14.5); UNCORRECTED WBC 25.2 10^3/ul (4.8-10.8); WHITE BLOOD COUNT 25.2 10^3/ul (4.8-10.8)
[2016-11-01 22:06] LABS: CONDITION 1; LH ANALYZER COMMENTS 1
[2016-11-01 22:29] LABS: POTASSIUM 4.4 mmol/L (3.5-5.1)
[2016-11-01 22:32] LABS: CREATININE 0.94 mg/dl (0.44-1.00)
[2016-11-01 22:33] LABS: CALCIUM 8.8 mg/dl (8.4-10.2)
[2016-11-01] MEDS: MONTELUKAST 10 MG TAB PO SCH (23:00)
[2016-11-01] MEDS: DONEPEZIL 10 MG TAB PO SCH (23:00)
[2016-11-01] MEDS: SOD CHLORIDE 0.9% 1,000 ML IV SCH (23:08)
[2016-11-01] MEDS: CEFAZOLIN 1 GM/50 ML (PMX) 50 ML IVPB SCH (23:09)
--- NOTE | 2016-11-01 23:15 | RADRPT ---
PROCEDURE: Fluoroscopy. CLINICAL INDICATION: Intraoperative fluoroscopic guidance. TECHNIQUE: Fluoroscopic guidance provided for intraoperative procedure. COMPARISON: 10/26/2069 FINDINGS: 0.6 seconds fluoroscopy time was used. 3 intraoperative spot radiographs obtained. IMPRESSION: Fluoroscopic guidance provided for intraoperative procedure. RPTAT:AAJJ Chad Robles Physician Date Time Electronically viewed and signed by Chad Robles Physician on 11/01/2016 23:14 [facility]ACI/
[2016-11-02] VITALS (8 sets, daily range): BP systolic 120–162; BP diastolic 55–71; RESP 16–20
[2016-11-02 06:26] LABS: HEMATOCRIT 31.3 % (37.0-47.0); HEMOGLOBIN 11.4 g/dl (12.0-16.0); LYMPHOCYTES # 0.6 10^3/ul (0.8-2.9); LYMPHOCYTES % 3.8 % (15.0-51.0); MEAN CORPUSCULAR HEMOGLOBIN 34.3 pg (29.0-33.0); MEAN CORPUSCULAR HGB CONC 36.4 g/dl (32.0-37.0); MEAN CORPUSCULAR VOLUME 94.3 fl (82.0-101.0); MEAN PLATELET VOLUME 8.3 fl (7.4-10.4); MONOCYTE # 0.7 10^3/ul (0.3-0.9); MONOCYTES % 4.8 % (0.0-11.0); NEUTROPHIL # 13.4 10^3/ul (1.6-7.5); NEUTROPHILS % 91.4 % (39.0-77.0); PLATELET COUNT 282 10^3/UL (140-440); RED BLOOD COUNT 3.32 10^6/ul (4.20-5.40); RED CELL DISTRIBUTION WIDTH 13.5 % (11.5-14.5); UNCORRECTED WBC 14.7 10^3/ul (4.8-10.8); WHITE BLOOD COUNT 14.7 10^3/ul (4.8-10.8)
[2016-11-02] MEDS: morphine 2 MG INJ IV PRN ×2 (06:27→18:47)
[2016-11-02] MEDS: LEVOTHYROXINE 75 MCG TAB PO SCH (06:27)
[2016-11-02 06:29] LABS: CONDITION 1; LH ANALYZER COMMENTS 1
[2016-11-02] MEDS: SOD CHLORIDE 0.9% 1,000 ML IV SCH ×2 (06:32→16:34)
[2016-11-02] MEDS: CEFAZOLIN 1 GM/50 ML (PMX) 50 ML IVPB SCH ×2 (06:32→15:41)
[2016-11-02 06:42] LABS: MAGNESIUM 2.1 mg/dl (1.7-2.5); PHOSPHORUS 4.4 mg/dl (2.5-4.9)
[2016-11-02 06:55] LABS: POTASSIUM 4.2 mmol/L (3.5-5.1)
[2016-11-02 06:58] LABS: CREATININE 0.94 mg/dl (0.44-1.00)
[2016-11-02 06:59] LABS: CALCIUM 8.5 mg/dl (8.4-10.2)
[2016-11-02] MEDS: DOCUSATE SODIUM 100 MG CAP PO SCH ×2 (09:00→21:04)
--- NOTE | 2016-11-02 10:27 | PN ---
Date/Time of Note Date/Time of Note DATE: 11/02/16 TIME: 10:20 Assessment/Plan VTE Prophylaxis VTE Prophylaxis Intervention: LMWH Lines/Catheters IV [facility]ter Type (from [facility]): Peripheral IV Urinary Cath still in place: Yes Reason Cath still needed: urinary retention Assessment/Plan Chief Complaint/Hosp Course Chief Complaint/Hosp Course 1. Left subcapital femoral neck fracture. s/p ORIF day 1 2. Essential hypertension. Continue antihypertensives including p.r.n. antihypertensive . 3. Cardiomyopathy with ejection fraction of 45%. No evidence of any congestive heart failure exacerbation. Continue beta blockers and DRE inhibitors. 4. Hypothyroidism. Continue Synthroid. 5. Pulmonary hypertension. PA pressure of 42 mmHg as per 2-D echocardiogram. Continue supplemental oxygen. 6. Status post systemic inflammatory response syndrome with leukocytosis and febrile illness upon admission. Etiology unclear. Alcantar cultures negative. Antibiotics has been discontinued. 7. Dementia. Continue Aricept. Continue frequent reorientation. 8. Fluid, electrolytes, and nutrition. Continue pureed diet. 9. Deep venous thrombosis prophylaxis with bilateral sequential compression devices. 10. Gastrointestinal prophylaxis. Histamine 2 receptor blockers. 11. Possible aspiration. ST eval. May need PEG giving decreased po intake. We will [facility]. Problems: Subjective 24 Hr Interval Summary Free Text/Dictation Patient stable status post open reduction internal fixation of the left hip postop day 1 She remains confused which appears her baseline no evidence of respiratory distress Exam/Review of Systems Vital Signs Vitals Vital Signs Date Time Temp Pulse Resp B/P Pulse Ox O2 Delivery O2 Flow Rate FiO2 11/02/16 08:01 98.8 82 20 121/55 95 11/01/16 22:40 Nasal Cannula 3.0 Intake and Output 11/01/16 11/01/16 11/02/16 15:00 23:00 07:00 Intake Total 50 ml 1120 ml 700 ml Output Total 2500 ml 100 ml Balance 50 ml -1380 ml 600 ml Exam All GENERAL: Elderly lady awake alert oriented comfortable at rest VITAL SIGNS: per chart NECK: Supple. No JVD or lymphadenopathy. CARDIAC EXAM: S1, S2. No added sounds or murmurs. CHEST: clear bilaterally, No added sounds, rales or wheezes ABDOMEN: Soft, nontender. No guarding or rebound. EXTREMITIES: No cyanosis, clubbing, edema +1 NEUROLOGIC: Generalized weakness. Results Result Diagram: 11/02/16 0520 11/02/16 0520 Results 24 hrs Laboratory Tests Test 11/01/16 21:48 11/01/16 22:05 11/02/16 05:20 Basophils # 0.1 0.0 Basophils % 0.2 0.0 Eosinophils # 0.8 H 0.0 Eosinophils % 3.1 0.0 Hematocrit 38.2 # 31.3 L Hemoglobin 13.0 # 11.4 L Lymphocytes # 4.0 H 0.6 L Lymphocytes % 15.9 3.8 L Mean Corpuscular Hemoglobin 30.9 34.3 H Mean Corpuscular Hemoglobin Concent 34.0 36.4 Mean Corpuscular Volume 90.7 94.3 Mean Platelet Volume 8.1 8.3 Monocytes # 1.3 H 0.7 Monocytes % 5.1 4.8 Neutrophils # 19.1 H 13.4 H Neutrophils % 75.7 91.4 H Nucleated Red Blood Cells # 0.0 0.0 Nucleated Red Blood Cells % 0.0 0.0 Platelet Count 286 282 Red Blood Count 4.21 # 3.32 #L Red Cell Distribution Width 13.4 13.5 White Blood Count 25.2 #H 14.7 #H Anion Gap 19 H 14 Blood Urea Nitrogen 15 17 Calcium Level 8.8 8.5 Carbon Dioxide Level 29 26 Chloride Level 102 106 Creatinine 0.94 0.94 Glucose Level 170 168 Potassium Level 4.4 4.2 Sodium Level 146 H 142 Magnesium Level 2.1 Phosphorus Level 4.4 Medications Medications Current Medications Ondansetron HCl (Zofran Inj) 4 mg Q6H PRN IV NAUSEA AND/OR VOMITING; Start at 14:30 Acetaminophen (Tylenol Tab) 650 mg Q6H PRN PO PAIN LEVEL 1-3 OR FEVER Last administered on 10/27/16 13:55; Admin Dose 650 MG; Start 10/26/16 at 14:30 Acetaminophen/ Hydrocodone Bitart ([place] (5/325)) 1 tab Q6H PRN PO MODERATE PAIN LEVEL 4-6; Start 10/26/16 at 14:30 Morphine Sulfate (morphine) 2 mg Q4H PRN IV SEVERE PAIN LEVEL 7-10 Last administered on 11/02/16 06:27; Admin Dose 2 MG; Start 10/26/16 at 14:30 Zolpidem Tartrate (Ambien) 5 mg QHS PRN PO SLEEP Last administered on 01:01; Admin Dose 5 MG; Start 10/26/16 at 14:30 Heparin Sodium (Porcine) (Heparin (5000 Units/0.5 ml)) 5,000 unit Q12 SC Last administered on 10/26/16 20:37; Admin Dose 5,000 UNIT; Start 10/26/16 at 21:00 ; Status Future Hold Hydralazine HCl 10 mg 10 mg Q4H PRN IV SBP>170 Last administered on 11/01/16 13:30; Admin Dose 10 MG; Start 10/26/16 at 15:30 Dextrose/Sodium Chloride (D5-1/2ns) 1,000 ml @ 60 mls/hr [id number] IV Last administered on 11/01/16 15:29; Admin Dose 60 MLS/HR; Start 10/27/16 at 23:00 Amlodipine Besylate (Norvasc) 5 mg DAILY PO Last administered on 11/01/16 10: 26; Admin Dose 5 MG; Start 10/29/16 at 09:00 Ascorbic Acid (Vitamin C) 500 mg DAILY PO Last administered on 11/01/16 10:27 ; Admin Dose 500 MG; Start 10/29/16 at 09:00 Atenolol (Tenormin) 25 mg DAILY PO Last administered on 11/01/16 10:25; Admin Dose 25 MG; Start 10/29/16 at 09:00 Benazepril HCl (Lotensin) 20 mg BID PO Last administered on 11/01/16 10:27; Admin Dose 20 MG; Start 10/28/16 at 21:00 Docusate Sodium (Colace) 100 mg BID PO Last administered on 11/01/16 10:27; Admin Dose 100 MG; Start 10/28/16 at 21:00 Donepezil HCl (Aricept) 10 mg QHS PO Last administered on 10/31/16 21:48; Admin Dose 10 MG; Start 10/28/16 at 21:00 Ergocalciferol (Drisdol) 50,000 unit Q7D PO ; Start 11/03/16 at 09:00 Furosemide (Lasix) 20 mg DAILY PO Last administered on 11/01/16 10:25; Admin Dose 20 MG; Start 10/29/16 at 09:00 Levothyroxine Sodium (Synthroid) 75 mcg DAILY@06 PO Last administered on 06:27; Admin Dose 75 MCG; Start 10/29/16 at 06:00 Montelukast Sodium (Singulair) 10 mg HS PO Last administered on 10/31/16 21:48 ; Admin Dose 10 MG; Start 10/28/16 at 21:00 Multivitamins Therapeutic (Theragran) 1 tab DAILY PO Last administered on 10:27; Admin Dose 1 TAB; Start 10/29/16 at 09:00 Famotidine 20 mg 20 mg BID PO Last administered on 11/01/16 10:26; Admin Dose 20 MG; Start 10/28/16 at 21:00 Cefazolin Sodium 50 ml @ 100 mls/hr Q8H IVPB Last administered on 11/02/16 06 :32; Admin Dose 100 MLS/HR; Start 11/01/16 at 23:00; Stop 11/02/16 at 15:29 Sodium Chloride (NS) 1,000 ml @ 100 mls/hr Q10H IV Last administered on 23:08; Admin Dose 100 MLS/HR; Start 11/01/16 at 20:58 Enoxaparin Sodium (Lovenox) 40 mg DAILY SC ; Start 11/02/16 at 09:00 Morphine Sulfate (morphine) 2 mg Q2H PRN IV PAIN; Start 11/01/16 at 21:30 Acetaminophen/ Hydrocodone Bitart ([place] (5/325)) 1 tab Q3H PRN PO PAIN; Start 11/01/16 at 21:30 [facility] Nov 02, 2016 10:27
--- NOTE | 2016-11-02 11:09 | RADRPT ---
PROCEDURE: XR Pelvis. CLINICAL INDICATION: Trauma with pelvic pain. TECHNIQUE: 3 views of the pelvis. COMPARISON: Plain film dated 10/26/2016. FINDINGS: There is a displaced subcapital left femoral neck fracture. The degree of displacement is increased when compared with the exam from 10/26/2016. A right hip hemiarthroplasty is in place without evide nce of hardware failure, loosening, or periprosthetic fracture. The bones are diffusely underminera lized. There are aortic vascular calcifications and a Escobar catheter tip overlies the pelvis. The rectum is moderately distended with stool. IMPRESSION: 1. Mildly displaced subcapital left femoral neck fracture, with increased displacement when compare d with the exam from 10/26/2016. 2. Right hip hemiarthroplasty without evidence of complication. 3. Diffuse undermineralization of the bones. RPTAT: AA .Harshil Stewart MD, Date Time Electronically viewed and signed by .Harshil Stewart MD, on 11/02/2016 11:09 .P/
--- NOTE | 2016-11-02 11:13 | RADRPT ---
PROCEDURE: CT Pelvis without Contrast CLINICAL INDICATION: Pelvic pain, rule out fracture TECHNIQUE: Transaxial images were obtained through the pelvis on a multi-slice scanner without the intravenous contrast administratio. no oral contrast had previously been given. Sagittal and coron al re-formations were subsequently reconstructed. One or more of the following dose reduction techniques were used: - Automated exposure control. - Adjustment of the mA and/or kV according to patient size. - Use of iterative reconstruction technique. Radiation dose: CTDIvol = 7.62 mGy; DLP = 319.72 mGy-cm. COMPARISON: Comparison to the left hip portable study done 10/26/2016. A nondisplaced subcapital fracture was evident on the portable radiographs. FINDINGS: Osseous structures: There is a subcapital fracture is again seen at the left femoral neck with the f emoral shaft displaced superior laterally by approximately 1.4 cm and ventrally by approximately 0.8 cm. A total right hip replacement appears to be well seated. The remaining osseous elements are ra refied but intact. There is grade 1 anterolisthesis of L5 on S1 associated degenerative disk and fa cet changes. Hip joints: There is narrowing of the left hip joint without significant spurring. No joint effusion is identified. Sacroiliac joints: Appear unremarkable with no significant sclerosis or erosion identified. Extraperitoneal soft tissues: Appear unremarkable. Bladder: A Escobar catheter is seen in the implants. Reproductive organs: Unremarkable. Visualized bowel: Excessive stool is seen in the rectal ampulla. Peritoneum: No free intraperitoneal fluid or air is identified. Vessels: Atherosclerotic vascular calcification is noted. Lymph nodes: No pathologically enlarged nodes are identified. IMPRESSION: 1. Subcapital fracture involving the proximal left femur with the distal fragment displaced lateral ly by 1.4 cm and ventrally by approximately 0.8 cm. 2. There is a well seated total right hip replacement. 3. The osseous elements are otherwise rarefied but intact. 4. Grade 1 anterolisthesis of L5 on S1 associated degenerative disk and facet changes. 5. Atherosclerotic vascular calcification 6. A Escobar catheter is in place. Physician Kimmie Date Time Electronically viewed and signed by Physician Kimmie on 11/02/2016 11:13 /
[2016-11-02] MEDS: ASCORBIC ACID 500 MG TAB PO SCH (11:54)
[2016-11-02] MEDS: MULTIVITAMINS THERAPEUTIC TAB PO SCH (11:54)
[2016-11-02] MEDS: FAMOTIDINE 20 MG TAB PO SCH ×2 (11:54→21:05)
[2016-11-02] MEDS: ATENOLOL 25 MG TAB PO SCH (11:54)
[2016-11-02] MEDS: AMLODIPINE 5 MG TAB PO SCH (11:54)
[2016-11-02] MEDS: BENAZEPRIL 20 MG TAB PO SCH ×2 (11:55→21:05)
[2016-11-02] MEDS: FUROSEMIDE 20 MG TAB PO SCH (11:55)
[2016-11-02] MEDS: ENOXAPARIN 40 MG/0.4 ML SYG SC SCH (11:56)
--- NOTE | 2016-11-02 12:56 | PN ---
DATE: 11/01/2016 CARDIOLOGY FOLLOWUP SUBJECTIVE: The patient with no chest pain or pressure. Denies shortness of breath or palpitations to me. Hip pain appears to be improved. MEDICATIONS: Reviewed. OBJECTIVE: VITAL SIGNS: Temperature 98.4, heart rate of 74, blood pressure 170/72, ranging around 115 to 170s at peak, respiration rate of 20, saturating 92% 100%. HEENT: Normocephalic, atraumatic. No acute distress. Pupils are equal. CARDIOVASCULAR: Regular rate and rhythm. PULMONARY: No wheezes heard. GASTROINTESTINAL: Soft, nontender. EXTREMITIES: With trivial lower extremity edema. NEUROLOGIC: Awake, responds appropriately. Oriented to person and place. PSYCHIATRIC: Appears to be calm. LABORATORY: WBC of 9.6, hemoglobin 10.4, platelets 282. Sodium 145, potassium 3.6, BUN of 13, crea tinine 0.8, glucose 113, magnesium is 1.6. ASSESSMENT AND PLAN: 1. Cardiovascular preop evaluation. 2. Hip fracture. 3. Mild cardiomyopathy. 4. Hypertension. 5. Dementia. 6. Abnormal EKG. RECOMMENDATIONS: We will continue with the current cardiac care. Amlodipine will be continued. Be ta syd as tolerated will be continued. DRE inhibitor will be continued. Magnesium is to be rep laced as needed. Surgery is going to be planned, scheduled soon. Dictated By: NEGAR PHILLIPS/JOSE Conf#: [id number] DID#: [id number] CC: DEIDRE TOLLIVER LEATHER SEASONER;*EndCC*
[2016-11-02] MEDS: DEXTROSE 5%-0.45% NACL 1,000 ML IV SCH (13:40)
--- NOTE | 2016-11-02 14:43 | PN ---
DATE: 11/01/2016 Additional diagnostic studies including CT scan of the pelvis and special x-rays of the pelvis; main ly Judet view of the pelvis, was reviewed. There seems to be abnormal findings involving left hemip princess, possibly from previous trauma, including possible subluxation at the left sacroiliac joint, e xplaining marked deformity of the pelvic structures in the left half. It was also noted that there is a definite fracture involving the femoral neck with possible displacement rather than malunion. In view of those findings, it was felt that this patient was going to need a hemiarthroplasty of the left hip, and she was rescheduled for the hemiarthroplasty of the left hip in the a.m. on 7. Dictated By: ERIKA BAILON/JOSE Conf#: [id number] DID#: [id number]
--- NOTE | 2016-11-02 15:51 | OPR ---
DATE OF OPERATION: 11/01/2016 PREOPERATIVE DIAGNOSIS: Femoral neck fracture of the left hip. POSTOPERATIVE DIAGNOSES: 1. Possible femoral neck fracture of the left hip, possibly healing in a less than ideal position. 2. 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 OPERATION PERFORMED: Open exploration of the left hip and temporary closure for further detailed ev aluation, including CT scan of the pelvis and the left hip and closure, without definite surgeries, including hemiarthroplasty of the left hip. ANESTHESIA: General anesthesia. SURGEON: Erika Couch MD PROCEDURE AND FINDINGS: Preoperatively, in addition to the radiologic findings of the left hip, [facility] was showing a probable fracture at the femoral neck, with a remote possibility of malunion, which was reported as a femoral neck fracture, and painful limit of motion during the range of motion of the left hip. Because of these findings, it was my strong impression that the patient has a femoral neck fracture which needed a hemiarthroplasty of the left hip. During the positioning of the patie nt on her right lateral decubitus position there were some difficulties in proper positioning in the usual alignment. After proper prep and drape, and with the patient under anesthesia, the left hip was opened through a posterolateral approach incision and the area was explored. Initially there wa s a striking anatomical difference, with unusually prominent ischial protuberance in an unusually an terior position. It was also noted that the opening for the posterolateral approach to the hip join t was considerably narrowed and the of itself was absent in the usual location, and further ex ploration revealed that it was right on top of the hip joint anteriorly, which was rather unusual. Because of these unusual findings, while the incision was opened, a C-arm was closed in and the exam ination of the left hip was carried out under the C-arm, with the patient under anesthesia. In raul tion to some anatomical , the motion at the fracture site was not entirely clear, suggesting t hat there is a possibility of malunion going on. Because of this rather unusual abnormal finding, i t was decided to delay the surgery until additional radiologic studies, especially CT scan of the pe lvis, could be carried out prior the final definite surgery. After irrigation and hemostasis the incision was closed using 0 Vicryl for the muscle and fascia and 2-0 Vicryl for the subcutaneous tissues. Final skin closure was carried out with Steri-Strips in o rder to minimize the interference from the tripp during the additional CT scan of the pelvis. The patient tolerated the entire procedure very well and was sent to the recovery room in good condi tion. CT scan of the pelvis was ordered and also additional pelvic x-rays, including a Judet view of the p princess that includes the AP view, right oblique view, and left oblique view of the pelvis. Dictated By: ERIKA BAILON/JOSE Conf#: [id number] DID#: [id number]
[2016-11-02] MEDS: MONTELUKAST 10 MG TAB PO SCH (21:05)
[2016-11-02] MEDS: DONEPEZIL 10 MG TAB PO SCH (21:05)
[2016-11-03] VITALS (28 sets, daily range): BP systolic 96–154; BP diastolic 37–68; PULSE 59–86; RESP 12–27
[2016-11-03] MEDS: SOD CHLORIDE 0.9% 1,000 ML IV SCH ×2 (02:58→06:41)
[2016-11-03] MEDS: LEVOTHYROXINE 75 MCG TAB PO SCH (05:38)
[2016-11-03] MEDS: morphine 2 MG INJ IV PRN (05:42)
[2016-11-03] MEDS: DEXTROSE 5%-0.45% NACL 1,000 ML IV SCH (06:30)
[2016-11-03 06:37] LABS: POTASSIUM 3.6 mmol/L (3.5-5.1)
[2016-11-03 06:40] LABS: CREATININE 0.9 mg/dl (0.44-1.00)
[2016-11-03 06:41] LABS: CALCIUM 8.4 mg/dl (8.4-10.2); MAGNESIUM 1.9 mg/dl (1.7-2.5); PHOSPHORUS 3.2 mg/dl (2.5-4.9)
[2016-11-03] MEDS ORDERED: POLYMYXIN/BACITRACIN 1L IRRIG ONE (07:27)
[2016-11-03 07:52] LABS: BASOPHILS % 0.3 % (0.0-2.0); EOSINOPHILS # 0.2 10^3/ul (0.0-0.5); HEMATOCRIT 25.8 % (37.0-47.0); HEMOGLOBIN 9.9 g/dl (12.0-16.0); LYMPHOCYTES # 2.8 10^3/ul (0.8-2.9); LYMPHOCYTES % 22.5 % (15.0-51.0); MEAN CORPUSCULAR HEMOGLOBIN 40.3 pg (29.0-33.0); MEAN CORPUSCULAR HGB CONC 38.3 g/dl (32.0-37.0); MEAN CORPUSCULAR VOLUME 105.4 fl (82.0-101.0); MEAN PLATELET VOLUME 8.5 fl (7.4-10.4); MONOCYTE # 1.3 10^3/ul (0.3-0.9); MONOCYTES % 10.7 % (0.0-11.0); NEUTROPHIL # 7.9 10^3/ul (1.6-7.5); NEUTROPHILS % 64.5 % (39.0-77.0); PLATELET COUNT 260 10^3/UL (140-440); RED BLOOD COUNT 2.45 10^6/ul (4.20-5.40); RED CELL DISTRIBUTION WIDTH 13.7 % (11.5-14.5); UNCORRECTED WBC 12.3 10^3/ul (4.8-10.8); WHITE BLOOD COUNT 12.3 10^3/ul (4.8-10.8)
[2016-11-03 07:58] LABS: CONDITION 1; LH ANALYZER COMMENTS 1
[2016-11-03] MEDS ORDERED: LIDOCAINE 2% (SDV) 5 ML INJ ONE (08:11)
[2016-11-03] MEDS ORDERED: MIDAZOLAM 1 MG/ML 2 ML INJ ONE (08:11)
[2016-11-03] MEDS ORDERED: ROCURONIUM 50 MG INJ ONE (08:11)
[2016-11-03] MEDS ORDERED: PROPOFOL 20 ML ONE (08:11)
[2016-11-03] MEDS ORDERED: FENTAnyl 50 MCG/ML VIAL ONE (08:11)
[2016-11-03] MEDS ORDERED: ETOMIDATE 20 MG INJ ONE (08:20)
[2016-11-03] MEDS ORDERED: PHENYLephrine (100 MCG/ML) 5ML SYG ONE ×2 (08:27→09:57)
[2016-11-03] MEDS: ASCORBIC ACID 500 MG TAB PO SCH (09:00)
[2016-11-03] MEDS ORDERED: ONDANSETRON 4 MG INJ IV PRN (09:00)
[2016-11-03] MEDS: MULTIVITAMINS THERAPEUTIC TAB PO SCH (09:00)
[2016-11-03] MEDS: AMLODIPINE 5 MG TAB PO SCH (09:00)
[2016-11-03] MEDS: FAMOTIDINE 20 MG TAB PO SCH ×2 (09:00→20:58)
[2016-11-03] MEDS ORDERED: PROCHLORPERAZINE 10 MG INJ IV PRN (09:00)
[2016-11-03] MEDS ORDERED: HYDROmorphONE (0.2 MG/ML) 10ML SYG IV PRN ×2 (09:00)
[2016-11-03] MEDS: ENOXAPARIN 40 MG/0.4 ML SYG SC SCH (09:00)
[2016-11-03] MEDS: FUROSEMIDE 20 MG TAB PO SCH (09:00)
[2016-11-03] MEDS ORDERED: FENTAnyl 50 MCG/ML VIAL IV PRN (09:00)
[2016-11-03] MEDS: BENAZEPRIL 20 MG TAB PO SCH ×2 (09:00→20:58)
[2016-11-03] MEDS ORDERED: ERGOCALCIFEROL 50,000 UNIT CAP PO SCH (09:00)
[2016-11-03] MEDS: DOCUSATE SODIUM 100 MG CAP PO SCH ×2 (09:00→20:58)
[2016-11-03] MEDS ORDERED: MEPERIDINE 25 MG INJ IV PRN (09:00)
[2016-11-03] MEDS: ATENOLOL 25 MG TAB PO SCH (09:00)
[2016-11-03] MEDS ORDERED: FAMOTIDINE 20 MG INJ ONE (09:05)
[2016-11-03] MEDS ORDERED: ONDANSETRON 4 MG INJ ONE (09:05)
[2016-11-03] MEDS ORDERED: DEXAMETHASONE 4 MG/ML 1 ML INJ ONE (09:05)
[2016-11-03] MEDS ORDERED: NEOSTIGMINE 3 MG/3 ML SYRINGE ONE ×2 (09:44→09:46)
[2016-11-03] MEDS ORDERED: EPHEDrine SULFATE 50 MG/5 ML SYG ONE ×2 (09:44→09:52)
[2016-11-03] MEDS ORDERED: GLYCOPYRROLATE 1 MG INJ ONE (09:44)
[2016-11-03] MEDS ORDERED: HYDROmorphONE 2 MG/ML SYG ONE (09:47)
[2016-11-03] MEDS ORDERED: HYDROmorphONE 1 MG/ML SYG IV PRN (10:30)
[2016-11-03] MEDS ORDERED: HYDROCODONE/APAP (5/325) TAB PO PRN ×2 (10:30)
[2016-11-03] MEDS ORDERED: NACL 0.9% 3 ML SYG IV SCH (10:30)
[2016-11-03 11:09] LABS: HEMOGLOBIN 8.4 g/dl (12.0-16.0)
[2016-11-03 11:14] LABS: POTASSIUM 4.1 mmol/L (3.5-5.1)
[2016-11-03 11:17] LABS: CALCIUM 7.7 mg/dl (8.4-10.2); CREATININE 0.77 mg/dl (0.44-1.00)
--- NOTE | 2016-11-03 11:41 | PN ---
Date/Time of Note Date/Time of Note DATE: 11/03/16 TIME: 11:39 Assessment/Plan VTE Prophylaxis VTE Prophylaxis Intervention: SCD's Lines/Catheters IV Catheter Type (from [facility]rs): Peripheral IV Urinary Cath still in place: Yes Reason Cath still needed: urinary retention Assessment/Plan Chief Complaint/Hosp Course Chief Complaint/Hosp Course 1. Left subcapital femoral neck fracture. s/p left hemiarthroplasty today 2. Essential hypertension. Continue antihypertensives including p.r.n. antihypertensive . 3. Cardiomyopathy with ejection fraction of 45%. No evidence of any congestive heart failure exacerbation. Continue beta blockers and DRE inhibitors. 4. Hypothyroidism. Continue Synthroid. 5. Pulmonary hypertension. PA pressure of 42 mmHg as per 2-D echocardiogram. Continue supplemental oxygen. 6. Status post systemic inflammatory response syndrome with leukocytosis and febrile illness upon admission. Etiology unclear. Alcantar cultures negative. Antibiotics has been discontinued. 7. Dementia. Continue Aricept. Continue frequent reorientation. 8. Fluid, electrolytes, and nutrition. Continue pureed diet. 9. Deep venous thrombosis prophylaxis with bilateral sequential compression devices. 10. Gastrointestinal prophylaxis. Histamine 2 receptor blockers. 11. Possible aspiration. ST eval. May need PEG giving decreased po intake. 12. Anemia postop likely somewhat dilutional will continue to monitor hold transfusion for now. We will likely need [facility] facility. Problems: Subjective 24 Hr Interval Summary Free Text/Dictation Patient status post left hemiarthroplasty Remains comfortable but confused No significant pain Exam/Review of Systems Vital Signs Vitals Vital Signs Date Time Temp Pulse Resp B/P Pulse Ox O2 Delivery O2 Flow Rate FiO2 11/03/16 11:30 76 123/46 96 Nasal Cannula 2.0 11/03/16 11:25 12 11/03/16 11:16 99.1 Intake and Output 11/02/16 11/02/16 11/03/16 15:00 23:00 07:00 Intake Total 500 ml 410 ml 800 ml Output Total 600 ml 400 ml Balance 500 ml -190 ml 400 ml Exam GENERAL: Elderly lady comfortable at rest no acute distress VITAL SIGNS: per chart NECK: Supple. No JVD or lymphadenopathy. CARDIAC EXAM: S1, S2. No added sounds or murmurs. CHEST: clear bilaterally, No added sounds, rales or wheezes ABDOMEN: Soft, nontender. No guarding or rebound. EXTREMITIES: No cyanosis, clubbing or edema. NEUROLOGIC: Generalized weakness. No focal deficits. Results Result Diagram: 11/03/16 1055 11/03/16 1055 Results 24 hrs Laboratory Tests Test 11/03/16 05:07 11/03/16 10:55 Anion Gap 11 12 Basophils # 0.0 Basophils % 0.3 Blood Morphology Comment Blood Urea Nitrogen 16 15 Calcium Level 8.4 7.7 L Carbon Dioxide Level 28 26 Chloride Level 106 106 Creatinine 0.90 0.77 Eosinophils # 0.2 Eosinophils % 2.0 Glucose Level 117 # 134 Hematocrit 25.8 L 24.0 L Hemoglobin 9.9 L 8.4 L Lymphocytes # 2.8 Lymphocytes % 22.5 Magnesium Level 1.9 Mean Corpuscular Hemoglobin 40.3 H Mean Corpuscular Hemoglobin Concent 38.3 H Mean Corpuscular Volume 105.4 H Mean Platelet Volume 8.5 Monocytes # 1.3 H Monocytes % 10.7 Neutrophils # 7.9 H Neutrophils % 64.5 Nucleated Red Blood Cells # 0.0 Nucleated Red Blood Cells % 0.0 Phosphorus Level 3.2 Platelet Count 260 Potassium Level 3.6 4.1 Red Blood Count 2.45 #L Red Cell Distribution Width 13.7 Sodium Level 141 140 White Blood Count 12.3 H Medications Medications Current Medications Ondansetron HCl (Zofran Inj) 4 mg Q6H PRN IV NAUSEA AND/OR VOMITING; Start at 14:30 Acetaminophen (Tylenol Tab) 650 mg Q6H PRN PO PAIN LEVEL 1-3 OR FEVER Last administered on 10/27/16 13:55; Admin Dose 650 MG; Start 10/26/16 at 14:30 Acetaminophen/ Hydrocodone Bitart ([place] (5/325)) 1 tab Q6H PRN PO MODERATE PAIN LEVEL 4-6; Start 10/26/16 at 14:30 Morphine Sulfate (morphine) 2 mg Q4H PRN IV SEVERE PAIN LEVEL 7-10 Last administered on 11/03/16 05:42; Admin Dose 2 MG; Start 10/26/16 at 14:30 Zolpidem Tartrate (Ambien) 5 mg QHS PRN PO SLEEP Last administered on 01:01; Admin Dose 5 MG; Start 10/26/16 at 14:30 Heparin Sodium (Porcine) (Heparin (5000 Units/0.5 ml)) 5,000 unit Q12 SC Last administered on 10/26/16 20:37; Admin Dose 5,000 UNIT; Start 10/26/16 at 21:00 ; Status Future Hold Hydralazine HCl 10 mg 10 mg Q4H PRN IV SBP>170 Last administered on 11/01/16 13:30; Admin Dose 10 MG; Start 10/26/16 at 15:30 Dextrose/Sodium Chloride (D5-1/2ns) 1,000 ml @ 60 mls/hr [id number] IV Last administered on 11/02/16 13:40; Admin Dose 60 MLS/HR; Start 10/27/16 at 23:00 Amlodipine Besylate (Norvasc) 5 mg DAILY PO Last administered on 11/02/16 11: 54; Admin Dose 5 MG; Start 10/29/16 at 09:00 Ascorbic Acid (Vitamin C) 500 mg DAILY PO Last administered on 11/02/16 11:54 ; Admin Dose 500 MG; Start 10/29/16 at 09:00 Atenolol (Tenormin) 25 mg DAILY PO Last administered on 11/02/16 11:54; Admin Dose 25 MG; Start 10/29/16 at 09:00 Benazepril HCl (Lotensin) 20 mg BID PO Last administered on 11/02/16 21:05; Admin Dose 20 MG; Start 10/28/16 at 21:00 Docusate Sodium (Colace) 100 mg BID PO Last administered on 11/02/16 21:04; Admin Dose 100 MG; Start 10/28/16 at 21:00 Donepezil HCl (Aricept) 10 mg QHS PO Last administered on 11/02/16 21:05; Admin Dose 10 MG; Start 10/28/16 at 21:00 Ergocalciferol (Drisdol) 50,000 unit Q7D PO ; Start 11/03/16 at 09:00 Furosemide (Lasix) 20 mg DAILY PO Last administered on 11/02/16 11:55; Admin Dose 20 MG; Start 10/29/16 at 09:00 Levothyroxine Sodium (Synthroid) 75 mcg DAILY@06 PO Last administered on 05:38; Admin Dose 75 MCG; Start 10/29/16 at 06:00 Montelukast Sodium (Singulair) 10 mg HS PO Last administered on 11/02/16 21:05 ; Admin Dose 10 MG; Start 10/28/16 at 21:00 Multivitamins Therapeutic (Theragran) 1 tab DAILY PO Last administered on 11:54; Admin Dose 1 TAB; Start 10/29/16 at 09:00 Famotidine 20 mg 20 mg BID PO Last administered on 11/02/16 21:05; Admin Dose 20 MG; Start 10/28/16 at 21:00 Sodium Chloride (NS) 1,000 ml @ 100 mls/hr Q10H IV Last administered on 06:41; Admin Dose 100 MLS/HR; Start 11/01/16 at 20:58 Enoxaparin Sodium (Lovenox) 40 mg DAILY SC Last administered on 11/02/16 11:56 ; Admin Dose 40 MG; Start 11/02/16 at 09:00 Morphine Sulfate (morphine) 2 mg Q2H PRN IV PAIN; Start 11/01/16 at 21:30 Acetaminophen/ Hydrocodone Bitart 1 tab 1 tab Q3H PRN PO PAIN; Start 11/01/16 at 21:30 Potassium Chloride/Dextrose/ Sod Cl (D5-1/2ns + KCl 10 Meq) 1,000 ml @ 125 mls/ hr Q8H IV ; Start 11/03/16 at 10:09; Status UNV Acetaminophen/ Hydrocodone Bitart ([place] (5/325)) 1 tab Q4H PRN PO PAIN LEVEL 1 -3; Start 11/03/16 at 10:30; Status UNV Acetaminophen/ Hydrocodone Bitart ([place] (5/325)) 2 tab Q4H PRN PO PAIN LEVEL 4 -7; Start 11/03/16 at 10:30; Status UNV Hydromorphone HCl 1 mg 1 mg Q3H PRN IV PAIN LEVEL 8-10; Start 11/03/16 at 10:30 ; Status UNV Cefazolin Sodium (Ancef 1 Gm/50 ml (Pmx)) 50 ml @ 100 mls/hr Q8H IVPB ; Start 11/03/16 at 10:30; Stop 11/04/16 at 02:59; Status UNV Enoxaparin Sodium (Lovenox) 40 mg DAILY SC ; Start 11/04/16 at 09:00; Status UNV [facility], [facility] Nov 03, 2016 11:41
[2016-11-03] MEDS: D5W-0.45 NACL + KCL 10 MEQ 1,000 ML IV SCH ×3 (12:59→21:47)
--- NOTE | 2016-11-03 16:34 | OPR ---
DATE OF OPERATION: 11/03/2016 PREOPERATIVE DIAGNOSIS: Femoral neck fracture of the left hip. POSTOPERATIVE DIAGNOSIS: Femoral neck fracture of the left hip. OPERATION PERFORMED: Hemiarthroplasty of the left hip. ANESTHESIA: General anesthesia. SURGEON: Erika Couch MD PREOPERATIVE NOTE: During previous attempted hemiarthroplasty of the left hip 2 weeks ago, there w ere some unusual findings including abnormal position of the pelvis along with the questionable frac ture and initial attempt was canceled, and additional diagnostic studies including CT scan of the pe lvis and a complete multiple view of the pelvis was performed, and after confirming some anatomic ab normality, possibly from previous injury and obvious fracture of the femoral head at the left hip, t he patient was brought back to the surgery. PROCEDURE AND FINDINGS: Patient was placed in a lateral decubitus position with the right side down and left side up, and the left hip was approached through the previous incision in the posterolater al aspect of the left hip. Again, the abnormally positioned sciatic nerve was identified safely and was isolated out of harm's way using Prosper drain. The hip joint was opened and obvious fracture which appeared to be old was identified. The femoral head was removed and the measurement revealed that the size of the femoral head is about 57 mm in diameters and a trial reduction with the 57 mm b ipolar cup revealed that the fitting was satisfactory and stable. After packing the acetabular cavity, attention was then directed to the proximal femur. Following i nitial preparation with box osteotome and T-handled reamer, further preparation was carried out with the serially increasing size of broaches. With the size 7 broach in, provisional components were a ssembled and the joint was reduced and the range of motion and the stability of the table was tested . After several tests, it was my impression that it was most stable with the 0 neck in a high-offse t position and the 47 mm bipolar cup was most satisfactory. After removing all the trial components , actual size 7 stem in a high-offset setting was inserted and this was connected to the 0 neck, 47 mm cup. The joint was reduced and the range of motion and stability were satisfactory. After hemos tasis and irrigation and after repair of the short external rotator, joint was further stabilized by repairing the joint capsules. Further closure was carried out using 0 Vicryl for muscle and fascia and 2-0 Vicryl for subcutaneous tissues. Final skin closure was carried out with skin tripp. Us ual sterile pressure dressings were applied. The patient tolerated the entire procedure very well and was sent to the recovery room in good condi tion. Dictated By: ERIKA BAILON/JOSE Conf#: [id number] DID#: [id number]
[2016-11-03] MEDS: CEFAZOLIN 1 GM/50 ML (PMX) 50 ML IVPB SCH (17:32)
[2016-11-03] MEDS: MONTELUKAST 10 MG TAB PO SCH (20:58)
[2016-11-03] MEDS: DONEPEZIL 10 MG TAB PO SCH (20:58)
--- NOTE | 2016-11-03 22:16 | RADRPT ---
PROCEDURE: XR Chest. CLINICAL INDICATION: Shortness of breath. TECHNIQUE: Single frontal view. COMPARISON: 10/26/2016. FINDINGS: The lungs are clear. The heart is mildly enlarged. There is thoracic scoliosis convex left superiorly and convex right i nferiorly. There is no pleural effusion. There is no pneumothorax. IMPRESSION: 1. Mild cardiomegaly. 2. Thoracic scoliosis. 3. Otherwise normal chest x-ray. RPTAT: QQ .Renny Curtis MD, MD Date Time Electronically viewed and signed by .Renny Curtis MD, MD on 11/03/2016 22:15 .R/
--- NOTE | 2016-11-03 22:17 | RADRPT ---
PROCEDURE: XR Pelvis. CLINICAL INDICATION: Pelvic pain. TECHNIQUE: Single AP view of the pelvis. COMPARISON: 11/02/2016. FINDINGS: There is a new left hip hemiarthroplasty. Gas is present in the soft tissues at this site and there are skin tripp. As seen previously, there is a right hip hemiarthroplasty. There is a Escobar catheter in the bladder . There is no lytic lesion. The sacroiliac joints are grossly unremarkable. IMPRESSION: 1. Satisfactory postoperative appearance of both hips. RPTAT: QQ .Renny Curtis MD, MD Date Time Electronically viewed and signed by .Renny Curtis MD, MD on 11/03/2016 22:17 .R/
[2016-11-04] MEDS: CEFAZOLIN 1 GM/50 ML (PMX) 50 ML IVPB SCH ×2 (00:14→09:22)
[2016-11-04] MEDS: LEVOTHYROXINE 75 MCG TAB PO SCH (05:28)
[2016-11-04] MEDS: D5W-0.45 NACL + KCL 10 MEQ 1,000 ML IV SCH ×2 (06:48→20:00)
[2016-11-04 07:01] LABS: POTASSIUM 4.2 mmol/L (3.5-5.1)
[2016-11-04 07:03] LABS: CREATININE 0.79 mg/dl (0.44-1.00)
[2016-11-04 07:04] LABS: CALCIUM 7.8 mg/dl (8.4-10.2); MAGNESIUM 1.7 mg/dl (1.7-2.5); PHOSPHORUS 2.3 mg/dl (2.5-4.9)
[2016-11-04 07:36] LABS: HEMATOCRIT 18.7 % (37.0-47.0); MEAN CORPUSCULAR HGB CONC 36.8 g/dl (32.0-37.0); MEAN CORPUSCULAR VOLUME 100.6 fl (82.0-101.0); MEAN PLATELET VOLUME 8.6 fl (7.4-10.4); PLATELET COUNT 207 10^3/UL (140-440); RED BLOOD COUNT 1.85 10^6/ul (4.20-5.40); RED CELL DISTRIBUTION WIDTH 13.3 % (11.5-14.5); UNCORRECTED WBC 12.9 10^3/ul (4.8-10.8); WHITE BLOOD COUNT 12.9 10^3/ul (4.8-10.8)
[2016-11-04 07:41] LABS: CONDITION 1; LH ANALYZER COMMENTS 1
[2016-11-04 07:42] LABS: HEMOGLOBIN 6.9 g/dl (12.0-16.0)
[2016-11-04 07:45] VITALS: BP 135/56; RESP 20
[2016-11-04] MEDS ORDERED: ENOXAPARIN 40 MG/0.4 ML SYG SC SCH (09:00)
[2016-11-04] MEDS: DOCUSATE SODIUM 100 MG CAP PO SCH ×2 (09:23→20:35)
[2016-11-04] MEDS: ATENOLOL 25 MG TAB PO SCH (09:23)
[2016-11-04] MEDS: FUROSEMIDE 20 MG TAB PO SCH (09:24)
[2016-11-04] MEDS: AMLODIPINE 5 MG TAB PO SCH (09:24)
[2016-11-04] MEDS: FAMOTIDINE 20 MG TAB PO SCH ×2 (09:24→20:35)
[2016-11-04] MEDS: MULTIVITAMINS THERAPEUTIC TAB PO SCH (09:24)
[2016-11-04] MEDS: ASCORBIC ACID 500 MG TAB PO SCH (09:24)
[2016-11-04] MEDS: BENAZEPRIL 20 MG TAB PO SCH ×2 (09:25→20:35)
[2016-11-04] MEDS: morphine 2 MG INJ IV PRN ×3 (09:39→18:16)
[2016-11-04 12:09] LABS: LYMPHOCYTES # 0.8 10^3/ul (0.8-2.9); MONOCYTE # 0.8 10^3/ul (0.3-0.9); NEUTROPHIL # 11.4 10^3/ul (1.6-7.5)
--- NOTE | 2016-11-04 13:18 | PN ---
Date/Time of Note Date/Time of Note DATE: 11/04/16 TIME: 13:10 Assessment/Plan VTE Prophylaxis VTE Prophylaxis Intervention: LMWH Lines/Catheters IV Catheter Type (from Nrs): Peripheral IV Urinary Cath still in place: Yes Reason Cath still needed: other (indicate) Assessment/Plan Assessment/Plan 1. Left subcapital femoral neck fracture. s/p left hemiarthroplasty 11/03/2016 , stable, follow up with PT and ortho 2. Macrocytic anemia, acute on chronic, 2 unit PRBC transfusion, follow up with CBC 3. Essential hypertension. controlled 4. Cardiomyopathy with ejection fraction of 45%. No evidence of any congestive heart failure exacerbation. Continue beta blockers and DRE inhibitors. 5. Pulmonary hypertension. PA pressure of 42 mmHg as per 2-D echocardiogram. Continue supplemental oxygen. 6. Status post systemic inflammatory response syndrome with leukocytosis and febrile illness upon admission. Etiology unclear. Alcantar cultures negative. Antibiotics has been discontinued. 7. Dementia. Continue Aricept. Continue frequent reorientation. 8. Hypothyroidism. Continue Synthroid. 9. Deep venous thrombosis prophylaxis with bilateral sequential compression devices. 10. Gastrointestinal prophylaxis. Histamine 2 receptor blockers. Subjective 24 Hr Interval Summary Free Text/Dictation demented, no respiratory distress Exam/Review of Systems Vital Signs Vitals Vital Signs Date Time Temp Pulse Resp B/P Pulse Ox O2 Delivery O2 Flow Rate FiO2 11/04/16 07:45 97.8 80 20 135/56 96 11/04/16 00:02 2.0 11/03/16 20:00 Nasal Cannula 11/03/16 17:02 28 Intake and Output 11/03/16 11/03/16 11/04/16 15:00 23:00 07:00 Intake Total 1440 ml 1000 ml 1170 ml Output Total 200 ml 200 ml 500 ml Balance 1240 ml 800 ml 670 ml Exam Constitutional: alert, other (demented) Head: atraumatic, normocephalic Eyes: EOMI, PERRL, nl conjunctiva, nl sclera ENMT: mucosa pink and moist, nl external ears & nose, nl lips & teeth, nl nasal mucosa & septum Neck: non-tender, supple Respiratory: clear to auscultation, normal air movement, No congested cough, No crackles/rales, No diminished breath sounds, No intercostal retraction, No labored breathing, No respirations, No tactile fremitus, No wheezing Cardiovascular: nl pulses, regular rate and rhythm, systolic murmur, No S3, No S4, No bruits, No edema, No gallop, No irregular rhythm, No jugular venous distention (JVD), No murmurs/extra sounds, No rub Gastrointestinal: nl liver, spleen, non-tender, soft, No ascites, No bowel sounds, No distended, No firm, No hepatomegaly, No mass , No rebound or guarding, No splenomegaly, No surgical scars, No tender Musculoskeletal: other (no hematoma or bleeding from left hip) Extremities: normal pulses, No calf tenderness, No clubbing, No cyanosis, No edema, No palpable cord, No pitting pedal edema Neurological: WEB MASTER II-XII intact, nl mental status, nl speech, nl strength Skin: nl turgor, rash or lesions Lymph: nl lymph nodes Results Result Diagram: 11/04/1625 11/04/16 0525 Results 24 hrs Laboratory Tests Test 11/04/16 05:25 Anion Gap 10 Basophils # Basophils % Blood Morphology Comment Blood Urea Nitrogen 13 Calcium Level 7.8 L Carbon Dioxide Level 26 Chloride Level 106 Creatinine 0.79 Differential Comment MANUAL DIFF Eosinophils # Eosinophils % Glucose Level 170 Hematocrit 18.7 #L Hemoglobin 6.9 *L Lymphocytes # 0.8 Lymphocytes % 6.0 L Magnesium Level 1.7 Mean Corpuscular Hemoglobin 37.0 H Mean Corpuscular Hemoglobin Concent 36.8 Mean Corpuscular Volume 100.6 Mean Platelet Volume 8.6 Monocytes # 0.8 Monocytes % 6.0 Neutrophils # 11.4 H Neutrophils % 88.0 H Nucleated Red Blood Cells # 0.0 Nucleated Red Blood Cells % 0.0 Phosphorus Level 2.3 L Platelet Count 207 # Potassium Level 4.2 Red Blood Count 1.85 #L Red Cell Distribution Width 13.3 Sodium Level 138 White Blood Count 12.9 H Medications Medications Current Medications Ondansetron HCl (Zofran Inj) 4 mg Q6H PRN IV NAUSEA AND/OR VOMITING; Start at 14:30 Acetaminophen (Tylenol Tab) 650 mg Q6H PRN PO PAIN LEVEL 1-3 OR FEVER Last administered on 10/27/16t 13:55; Admin Dose 650 MG; Start 10/26/16 at 14:30 Zolpidem Tartrate (Ambien) 5 mg QHS PRN PO SLEEP Last administered on 01:01; Admin Dose 5 MG; Start 10/26/16 at 14:30 Heparin Sodium (Porcine) (Heparin (5000 Units/0.5 ml)) 5,000 unit Q12 SC Last administered on 10/26/16 20:37; Admin Dose 5,000 UNIT; Start 10/26/16 at 21:00 ; Status Future Hold Hydralazine HCl (Apresoline) 10 mg Q4H PRN IV SBP>170 Last administered on 11/01 13:30; Admin Dose 10 MG; Start 10/26/16 at 15:30 Amlodipine Besylate (Norvasc) 5 mg DAILY PO Last administered on 11/04/16 09: 24; Admin Dose 5 MG; Start 10/29/16 at 09:00 Ascorbic Acid (Vitamin C) 500 mg DAILY PO Last administered on 11/04/16 09:24 ; Admin Dose 500 MG; Start 10/29/16 at 09:00 Atenolol (Tenormin) 25 mg DAILY PO Last administered on 11/04/16 09:23; Admin Dose 25 MG; Start 10/29/16 at 09:00 Benazepril HCl (Lotensin) 20 mg BID PO Last administered on 11/04/16 09:25; Admin Dose 20 MG; Start 10/28/16 at 21:00 Docusate Sodium (Colace) 100 mg BID PO Last administered on 11/04/16 09:23; Admin Dose 100 MG; Start 10/28/16 at 21:00 Donepezil HCl (Aricept) 10 mg QHS PO Last administered on 11/03/16 20:58; Admin Dose 10 MG; Start 10/28/16 at 21:00 Ergocalciferol (Drisdol) 50,000 unit Q7D PO ; Start 11/03/16 at 09:00 Furosemide (Lasix) 20 mg DAILY PO Last administered on 11/04/16 09:24; Admin Dose 20 MG; Start 10/29/16 at 09:00 Levothyroxine Sodium (Synthroid) 75 mcg DAILY@06 PO Last administered on 05:28; Admin Dose 75 MCG; Start 10/29/16 at 06:00 Montelukast Sodium (Singulair) 10 mg HS PO Last administered on 11/03/16 20:58 ; Admin Dose 10 MG; Start 10/28/16 at 21:00 Multivitamins Therapeutic (Theragran) 1 tab DAILY PO Last administered on 09:24; Admin Dose 1 TAB; Start 10/29/16 at 09:00 Famotidine (Pepcid) 20 mg BID PO Last administered on 11/04/16 09:24; Admin Dose 20 MG; Start 10/28/16 at 21:00 Morphine Sulfate 2 mg 2 mg Q2H PRN IV PAIN Last administered on 11/04/16 09:39 ; Admin Dose 2 MG; Start 11/01/16 at 21:30 Potassium Chloride/Dextrose/ Sod Cl (D5-1/2ns + KCl 10 Meq) 1,000 ml @ 125 mls/ hr Q8H IV Last administered on 11/04/16 06:48; Admin Dose 125 MLS/HR; Start at 12:00 Acetaminophen/ Hydrocodone Bitart ([place] (5/325)) 1 tab Q4H PRN PO PAIN LEVEL 1 -3; Start 11/03/16 at 10:30 Acetaminophen/ Hydrocodone Bitart ([place] (5/325)) 2 tab Q4H PRN PO PAIN LEVEL 4 -7; Start 11/03/16 at 10:30 Hydromorphone HCl (Dilaudid) 1 mg Q3H PRN IV PAIN LEVEL 8-10 Last administered on 11/03/16 20:59; Admin Dose 1 MG; Start 11/03/16 at 10:30 Enoxaparin Sodium (Lovenox) 40 mg DAILY SC ; Start 11/04/16 at 09:00; Status Future hold PENNY MANNING MD Nov 04, 2016 13:18
--- NOTE | 2016-11-04 18:01 | PN ---
DATE: 11/04/2016 SUBJECTIVE: Discussed with the staff. The patient with no report of chest pain or pressure. Still has hip pain with movement of the hip. Palpations status post surgery yesterday. MEDICATIONS: Reviewed. PHYSICAL EXAMINATION: VITAL SIGNS: Temperature 97.8, heart of 80, blood pressure 135/66, respiratory rate of 20, saturati ng 96%. HEENT: Normocephalic, atraumatic. No acute distress. CARDIOVASCULAR: Regular rate and rhythm. PULMONARY: No wheezes anteriorly. GASTROINTESTINAL: Soft, nontender. EXTREMITIES: Positive tenderness with movement. NEUROLOGIC: Awake and alert. Responds to person and place. LABORATORY: WBC of 12.9, hemoglobin of 6.9, platelets of 207. Sodium 138, potassium 4.2, BUN of 13 , creatinine 0.79, glucose of 170. Magnesium is 1.9. ASSESSMENT AND PLAN: 1. Hip fracture, status post surgery. 2. Severe anemia, getting transfused. 3. Hypertension, under good control. 4. History of cardiomyopathy ____ ejection fraction of 45%, currently stable. Monitor. 5. History of pulmonary hypertension, stable now. 6. Dementia. 7. History of hypothyroidism. RECOMMENDATIONS: Will continue with the current cardiac care. Transfusion is being done. Postop c are to be continued. DVT prophylaxis as per Internal Medicine. Dictated By: NEGAR PHILLIPS/JOSE Conf#: [id number] DID#: [id number]
[2016-11-04 19:00] VITALS: BP 138/63; RESP 16
[2016-11-04] MEDS: DONEPEZIL 10 MG TAB PO SCH (20:35)
[2016-11-04] MEDS: MONTELUKAST 10 MG TAB PO SCH (20:35)
[2016-11-04] MEDS: ENOXAPARIN 40 MG/0.4 ML SYG SC SCH (22:54)
[2016-11-05] MEDS: D5W-0.45 NACL + KCL 10 MEQ 1,000 ML IV SCH ×4 (00:30→18:09)
[2016-11-05] MEDS: LEVOTHYROXINE 75 MCG TAB PO SCH (06:00)
[2016-11-05 06:03] LABS: CREATININE 0.72 mg/dl (0.44-1.00)
[2016-11-05 06:04] LABS: CALCIUM 8.1 mg/dl (8.4-10.2)
[2016-11-05 06:05] LABS: BASOPHILS % 0.3 % (0.0-2.0); EOSINOPHILS # 0.4 10^3/ul (0.0-0.5); EOSINOPHILS % 2.9 % (0.0-7.0); HEMOGLOBIN 11.5 g/dl (12.0-16.0); LYMPHOCYTES # 2.5 10^3/ul (0.8-2.9); LYMPHOCYTES % 18.8 % (15.0-51.0); MEAN CORPUSCULAR HEMOGLOBIN 33.2 pg (29.0-33.0); MEAN CORPUSCULAR HGB CONC 34.8 g/dl (32.0-37.0); MEAN CORPUSCULAR VOLUME 95.4 fl (82.0-101.0); MEAN PLATELET VOLUME 8.4 fl (7.4-10.4); MONOCYTE # 1.2 10^3/ul (0.3-0.9); MONOCYTES % 9.3 % (0.0-11.0); NEUTROPHIL # 9.2 10^3/ul (1.6-7.5); NEUTROPHILS % 68.7 % (39.0-77.0); PLATELET COUNT 217 10^3/UL (140-440); RED BLOOD COUNT 3.46 10^6/ul (4.20-5.40); RED CELL DISTRIBUTION WIDTH 13.9 % (11.5-14.5); UNCORRECTED WBC 13.4 10^3/ul (4.8-10.8); WHITE BLOOD COUNT 13.4 10^3/ul (4.8-10.8)
[2016-11-05 06:48] LABS: CONDITION 1
[2016-11-05 07:22] VITALS: BP 136/61; RESP 16
[2016-11-05] MEDS: ASCORBIC ACID 500 MG TAB PO SCH (09:27)
[2016-11-05] MEDS: DOCUSATE SODIUM 100 MG CAP PO SCH (09:27)
[2016-11-05] MEDS: MULTIVITAMINS THERAPEUTIC TAB PO SCH (09:27)
[2016-11-05] MEDS: BENAZEPRIL 20 MG TAB PO SCH (09:28)
[2016-11-05] MEDS: FUROSEMIDE 20 MG TAB PO SCH (09:28)
[2016-11-05] MEDS: AMLODIPINE 5 MG TAB PO SCH (09:28)
[2016-11-05] MEDS: FAMOTIDINE 20 MG TAB PO SCH (09:29)
[2016-11-05] MEDS: ATENOLOL 25 MG TAB PO SCH (09:29)
[2016-11-05] MEDS: ENOXAPARIN 40 MG/0.4 ML SYG SC SCH (09:32)
[2016-11-05] MEDS ORDERED: LOV40I SC (13:13)
[2016-11-05] MEDS ORDERED: HYDR-3498 PO (13:13)
--- NOTE | 2016-11-05 13:20 | DS ---
Date/Time of Note Date/Time of Note DATE: 11/05/16 TIME: 13:14 Discharge Summary Admission/Discharge Info Admit Date/Time Oct 26, 2016 at 12:08 Discharge Date/Time Final Diagnosis 1. Left subcapital femoral neck fracture. s/p left hemiarthroplasty 11/03/2016 , stable, follow up with PT and ortho 2. Macrocytic anemia, acute on chronic, 2 unit PRBC transfusion, follow up PCP 3. Essential hypertension. controlled 4. Cardiomyopathy with ejection fraction of 45%. No evidence of any congestive heart failure exacerbation. Continue beta blockers and DRE inhibitors. 5. Pulmonary hypertension. PA pressure of 42 mmHg as per 2-D echocardiogram. 6. Status post systemic inflammatory response syndrome with leukocytosis and febrile illness upon admission. Etiology unclear. Alcantar cultures negative. Antibiotics has been discontinued. 7. Dementia. Continue Aricept. Continue frequent reorientation. 8. Hypothyroidism. Continue Synthroid. 9. Deep venous thrombosis prophylaxis with lovenox Patient Condition: Stable Hospital Course The patient is an 86-year-old female with a history of dementia. The patient [facility] at [facility]. [facility] and she presents with left hip pain. The patient reported falling out of her bed. No reports of loss of consciousness or head injury. In the ED, the patient had a hip x- ray that showed a probable minimally displaced left subcapital femoral neck fracture. CT should be performed for confirmation. The patient has no other complaints at this time. Mentation is poor secondary to dementia. Physical exam with left hip pain. X-ray/CT scan revealed Subcapital fracture involving the proximal left femur with the distal fragment displaced laterally by 1.4 cm and ventrally by approximately 0.8 cm. Patient had ORIF on 11/03/2016 without complication. Patient will be transferred to SNF for physical therapy. Patient had H/H 6.9/18.7 on 11/04/2016. She got 2 units of PRBCs, H/H are 11.5/ 33 on 11/05/2016. No local bleeding from the surgical incision. Home Meds Active Scripts Hydrocodone Bit-Acetaminophen (Hydrocodone Bit-APAP) 5-325MG Tablet, 2 TAB PO Q4H Y for PAIN LEVEL 4-7, #30 TAB Prov:PENNY MANNING MD 11/05/16 Enoxaparin Sodium* (Enoxaparin Sodium*) 40 Mg/0.4 Ml Syringe, 40 MG SC DAILY for 10 Days Prov:PENNY MANNING MD 11/05/16 Reported Medications Amlodipine Besylate* (Norvasc*) 5 Mg Tablet, 5 MG PO DAILY, TAB 10/26/16 Potassium Chloride* (Klor-Con*) 8 Meq Tablet.sa, 8 MEQ PO BID, TAB 07/17/15 Furosemide* (Lasix*) 20 Mg Tablet, 20 MG PO DAILY, TAB 07/17/15 Levothyroxine Sodium* (Synthroid*) 75 Mcg Tablet, 75 MCG PO AC BREAKFAST, TAB 07/17/15 Simvastatin (Simvastatin) 10 Mg Tablet, 10 MG PO HS, TAB 07/17/15 Multivitamins* (Once Daily*) 1 Tab Tablet, 1 TAB PO DAILY, TAB 07/17/15 Donepezil* (Aricept*) 10 Mg Tablet, 10 MG PO QHS, TAB 07/17/15 Docusate Sodium* (Colace*) 100 Mg Capsule, 100 MG PO BID, CAP 07/17/15 Benazepril Hcl* (Benazepril Hcl*) 20 Mg Tablet, 20 MG PO BID, TAB 07/17/15 Ergocalciferol* (Drisdol* (Vitamin D2)) 50,000 Unit Capsule, 18001 UNIT PO Q7D, CAP 07/17/15 Ascorbic Acid (Vitamin C) 500 Mg Tab, 500 MG PO DAILY, TAB 07/17/15 Montelukast Sodium* (Singulair*) 10 Mg Tablet, 10 MG PO HS, TAB 07/17/15 Clopidogrel Bisulfate (Clopidogrel) 75 Mg Tablet, 75 MG PO DAILY, TAB 07/17/15 Calcium Carbonate-Vitamin D3 (Calcium 500 + D Tablet) 1 Each Tablet, 1 TAB PO DAILY, TAB 07/17/15 Atenolol* (Atenolol*) 25 Mg Tablet, 25 MG PO DAILY, TAB 07/17/15 Follow-up Plan PCP one week OrthoDr. Couch in one week Pending Labs Laboratory Tests Test 11/05/16 05:15 Anion Gap 13 (8-16) Basophils # 0.010^3/ul (0.0-0.1) Basophils % 0.3% (0.0-2.0) Blood Urea Nitrogen 11mg/dl (7-20) Calcium Level 8.1mg/dl (8.4-10.2) Carbon Dioxide Level 27mmol/L (21-31) Chloride Level 104mmol/L (97-110) Creatinine 0.72mg/dl (0.44-1.00) Eosinophils # 0.410^3/ul (0.0-0.5) Eosinophils % 2.9% (0.0-7.0) Glucose Level 125mg/dl (70-220) Hematocrit 33.0% (37.0-47.0) Hemoglobin 11.5g/dl (12.0-16.0) Lymphocytes # 2.510^3/ul (0.8-2.9) Lymphocytes % 18.8% (15.0-51.0) Mean Corpuscular Hemoglobin 33.2pg (29.0-33.0) Mean Corpuscular Hemoglobin Concent 34.8g/dl (32.0-37.0) Mean Corpuscular Volume 95.4fl (82.0-101.0) Mean Platelet Volume 8.4fl (7.4-10.4) Monocytes # 1.210^3/ul (0.3-0.9) Monocytes % 9.3% (0.0-11.0) Neutrophils # 9.210^3/ul (1.6-7.5) Neutrophils % 68.7% (39.0-77.0) Nucleated Red Blood Cells # 0.010^3/ul (0.0-0.0) Nucleated Red Blood Cells % 0.0/100WBC (0.0-0.0) Platelet Count 54387^3/UL (140-440) Potassium Level 4.0mmol/L (3.5-5.1) Red Blood Count 3.4610^6/ul (4.20-5.40) Red Cell Distribution Width 13.9% (11.5-14.5) Sodium Level 140mmol/L (135-144) White Blood Count 13.410^3/ul (4.8-10.8) PENNY MANNING MD Nov 05, 2016 13:20
--- NOTE | 2016-11-05 17:28 | PN ---
DATE: 11/05/2016 SUBJECTIVE: No new cardiac event. No chest pain or pressure. MEDICATIONS: Reviewed. PHYSICAL EXAMINATION: VITAL SIGNS: Temperature 97.5, heart rate of 76, blood pressure 136/61, respiration rate of 16. HEENT: Normocephalic, atraumatic. Pupils are equal. CARDIOVASCULAR: Regular rate and rhythm. PULMONARY: No wheezes anteriorly. GASTROINTESTINAL: Soft. No rebound. No guarding. EXTREMITIES: No edema. NEUROLOGIC: He is awake, oriented to person only. PSYCHIATRIC: Appeared to be calm. LABORATORY DATA: WBC of 13.4, hemoglobin 11.5, platelets 217. Sodium 140, potassium 4, BUN of 11, creatinine 0.72, glucose of 125. ASSESSMENT AND PLAN 1. Hip fracture, status post surgery. 2. Anemia, status post transfusion. 3. Hypertension, under control. 4. History of mild cardiomyopathy, currently stable. Discharge troponin outpatient, currently stab le. 5. Dementia. 6. History of thyroid disorder. RECOMMENDATIONS: We will continue with the current cardiac care. Continue the postop care. Discha rge planning is in process to shelter. Dictated By: NEGAR LIU MD AV/NTS Conf#: [id number] DID#: [id number] CC: PENNY MANNING MD;*End*
--- NOTE | 2016-11-05 17:44 | PN ---
DATE: Second postop day, afebrile. Postop x-ray shows excellent alignment of the hemiarthroplasty prosthe sis. Progress with physical therapy is slow, probably because of her previous ambulatory status and mental condition. Afebrile, mild leukocytosis. Hemoglobin and hematocrit is 11.5/33.0 after trans fusion. Okay to be a transfer to intermediate facility from [facility]. Dictated By: ERIKA BAILON/JOSE Conf#: [id number] DID#: [id number]
[2016-11-05 20:18] VITALS: BP 150/68; RESP 22
== END 2016-11-05 21:10 | DRG 470 ==
LOC: E/R 07:01 → MS2 12:08
PROVIDERS: ADMIT Internal Medicine; ATTEND Internal Medicine
PROC: 30233N1 Transfusion of Nonautologous Red Blood Cells into Peripheral Vein, Percutaneous Approach (ICD-10-PCS; 2016-10-28)
PROC: 0SJB0ZZ Inspection of Left Hip Joint, Open Approach (ICD-10-PCS; 2016-11-01)
PROC: 0SRS01Z Replacement of Left Hip Joint, Femoral Surface with Metal Synthetic Substitute, Open Approach (ICD-10-PCS; principal; 2016-11-03 07:00)
DX: S72.012A Unspecified intracapsular fracture of left femur, initial encounter for closed fracture (principal); E87.0 Hyperosmolality and hypernatremia; I42.9 Cardiomyopathy, unspecified; F03.90 Unspecified dementia, unspecified severity, without behavioral disturbance, psychotic disturbance, mood disturbance, and anxiety; R65.10 Systemic inflammatory response syndrome (SIRS) of non-infectious origin without acute organ dysfunction; I27.2 Other secondary pulmonary hypertension; W06.XXXA Fall from bed, initial encounter; Y92.122 Bedroom in nursing home as the place of occurrence of the external cause; I25.10 Atherosclerotic heart disease of native coronary artery without angina pectoris; I10 Essential (primary) hypertension; E78.5 Hyperlipidemia, unspecified; E03.9 Hypothyroidism, unspecified; Z66 Do not resuscitate; D53.9 Nutritional anemia, unspecified; Z96.641 Presence of right artificial hip joint
CPT/HCPCS: 36415; 36430; 71010; 72170; 72190; 72192; 73510; 73530; 80048; 80061; 81001; 81003; 82550; 82553; 82652; 83036; 83735; 84100; 84439; 84443; 84484; 85014; 85018; 85025; 85610; 85730; 86850; 86900; 86901; 86920; 87040; 87081; 87086; 90686; 92610; 93005; 93306; 96374; 96375; 97163; C1776; J0360; J0690; J0696; J1100; J1170; J1644; J1650; J2250; J2270; J2370; J2405; J2710; J3010; J3475; J3480; J7030; J7042; P9016